=== PATIENT | male | born 1950 | race Caucasian/White ===

== ENCOUNTER 2020-01-11 08:03 | Inpatient (IN) ==
[2020-01-11] MEDS ORDERED: DILAUDID IV ONE ×2 (08:20→09:39)
[2020-01-11] MEDS ORDERED: ZOFRAN IV ONE (08:20)
[2020-01-11] MEDS ORDERED: PROTONIX 80 MG in NS 80 ML IV ONE (08:20)
[2020-01-11] MEDS ORDERED: NS 1,000 ML IV ONE (08:20)
[2020-01-11] MEDS ORDERED: SOLU-CORTEF IV ONE (08:23)
--- NOTE | 2020-01-11 08:48 | PROVIDER DOCUMENTATION ---
HPI-Abdominal Pain/GI Problem - General Chief Complaint: Abdominal Pain Stated Complaint: STOMACH PAIN Time Seen by Provider: 01/11/20 08:12 Source: patient Allergies/Adverse Reactions: Patient Allergies Allergy/AdvReac Type Severity Reaction Status Date / Time No Known Allergies Allergy Verified 01/11/20 10:50 Home Medications: Home Medication List Medication Instructions Recorded Confirmed Last Taken Type Prednisone 1 tab PO BID 01/11/20 01/11/20 Unknown History - History of Present Illness-ABD Nature of Presenting Problems: 69 yo male, c/o epigastric pain and vomiting since 0700 today. Has been having severe mid back pain x 3-4 days, thought he had been "overdoing it" at home. Has never had these symptoms before. Patient states he is steroid dependent d/t skin disease and pulmonary disease (bronchiolitis obliterans). No history of abdominal surgeries or similar symptoms. Sees Dr. Soto for GI, Rudolph for PCP and Elham for pulmonary. 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 Denies cough/SOB. Has significant chills this morning. No fever. Last BM yesterday, Did have some flatus today. Patient drove self to ED. Abdominal Pain Onset Location: reports: epigastric Pain Radiation: reports: back Quality of Pain: reports: aching, sharp, stabbing Severity in ED: reports: severe Onset/Duration: reports: 1-3 hours ago (with abdominal pain), 4 days ago (with back pain) Timing: reports: still present, constant, changing over time, getting worse Activities at Onset: reports: light activity Exposure to sick contacts?: No Modifying Factors: improves with: nothing. worse with: movement Associated Symptoms: reports: back/neck pain (back pain x 3-4 days, gradual onset, mid-back, getting progressively worse), fever/chills (chills this morning, no fever), loss of appetite, malaise, pain with inspiration (in epigastric area this morning), vomiting (numerous times this morning). denies: diaphoresis, diarrhea, dizziness Last BM: 24 hours ago Dark Stools Present?: reports: none noticed Rectal Bleeding: reports: none Rectal Pain: reports: none Emesis Description: reports: clear Bruising or Bleeding Gums?: No Similar Symptoms Previously?: No Recently seen or treated by another doctor?: No Review of Systems - Adult - REVIEW OF SYSTEMS - ADULT Constitutional: reports: see HPI, chills. denies: fever, night sweats Eyes: reports: no symptoms reported Ears, Nose, Mouth & Throat: reports: no symptoms reported Cardiovascular: reports: no symptoms reported Respiratory: reports: no symptoms reported Gastrointestinal: reports: see HPI, abdominal pain, nausea, poor appetite, vomiting. denies: hematemesis, constipation, diarrhea, difficulty swallowing, frequent heartburn, rectal bleeding Genitourinary: reports: no symptoms reported Musculoskeletal: reports: see HPI, back pain. denies: bone pain, frequent leg cramps, joint pain, joint swelling, muscle aches, muscle weakness, neck pain Integumentary: reports: no symptoms reported Neurological: reports: no symptoms reported Psychiatric: reports: no symptoms reported Endocrine: reports: no symptoms reported Hematologic/Lymphatic: reports: no symptoms reported Allergic/Immunologic: reports: no symptoms reported All Other Systems: Reviewed and Negative Past History - Adult - PAST MEDICAL HISTORY-ADULT Review of Records: reports: Old Records Reviewed (no recent admissions), Nursing Assessment Review, Medications Reviewed, Social history reviewed & non- contributory. 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) Gastrointestinal: reports: denies history Obstetrical/Gynecological: reports: denies history Genitourinary: reports: denies history Musculoskeletal: reports: denies history Neurological: reports: denies history Endocrine/Immune: reports: other (skin disorder (can't remember the name)) Other Conditions: reports: denies history - PRIOR SURGERIES/PROCEDURES Surgical/Procedure History: reports: reviewed, not pertinent - IMMUNIZATION STATUS Childhood Immunizations: UTD Flu Vaccine: UTD - FAMILY HISTORY Family History: reviewed, not pertinent - SOCIAL HISTORY Smoking: quit greater than 1 year Substance Use: none/never Alcohol Use Frequency: never Living Situation: family Physical Exam-General - PHYSICAL EXAM-ADULT Initial Vital Signs Reviewed: Yes (VSSAF) - CONSTITUTIONAL General Appearance: alert, moderate distress (dry heaving) - EYES Eyes: PERRL/EOMI, pale conjunctivae. negative: pink conjunctivae - HEAD, EARS, NOSE, MOUTH & THROAT HENMT: normocephalic/atraumatic, TMs normal, pharynx normal. negative: moist mucous membranes (dry) - NECK Neck: full range of motion, supple, normal inspection - RESPIRATORY Respiratory: chest non-tender, lungs clear, normal breath sounds, no pleuratic chest pain, no respiratory distress, no accessory muscle use - CARDIOVASCULAR Cardiovascular: normal peripheral pulses, regular rate, rhythm, no edema, no gallop, no JVD, no murmur - GASTROINTESTINAL (ABDOMEN) Abdominal Exam: soft, no organomegaly, no pulsatile mass, abnormal bowel sounds (decreased), guarding (epigastrum/RUQ), tenderness (primarily epigastrum/RUQ), Jon's sign. negative: rebound, mass, hepatomegaly, McBurney's point tenderness, obturator sign, prominent aortic pulsations, Rovsing's sign - LYMPHATIC Lymphatic: no adenopathy - MUSCULOSKELETAL Back Exam: normal inspection, no vertebral tenderness. negative: decreased range of motion Extremity: normal range of motion, non-tender, normal gait, normal inspection, no pedal edema, no calf tenderness, normal capillary refill Peripheral Pulses: radial (R): 2+, radial (L): 2+ - SKIN Integumentary: normal turgor, pallor, other (clammy) - NEUROLOGIC Neurologic: central processing tech II-XII nml as tested, grossly normal, no motor/sensory deficits - PSYCHIATRIC Psych/Mental Status: normal mood/affect, normal thought content, normal thought process, oriented x 3 Progress - PLAN OF CARE/RESULTS Progress/Plan/Lab Results: Vital Signs - 8 hr 01/11/20 08:09 Temperature 98.2 F Pulse Rate 86 Respiratory Rate 18 Blood Pressure 166/78 O2 Sat by Pulse Oximetry 99 Orders Category Date Time Status Nursing- Obtain EKG once Care 01/11/20 08:22 Active CHEST-PORTABLE [RAD] Stat Exams 01/11/20 08:[address] ABD/PELVIS W/IV CONT ONLY [CT] Stat Exams 01/11/20 08:22 Ordered AMYLASE [CHEM] Stat Lab 01/11/20 08:21 Uncollected BLOOD CULTURE [BLDCUL] Stat Lab 01/11/20 08:22 Uncollected CBC WITH ELECTRONIC DIFF [HEME] Stat Lab 01/11/20 08:21 Uncollected CORTISOL Stat Lab 01/11/20 08:23 Ordered INFLUENZA SCREEN A/B Stat Lab 01/11/20 08:23 Uncollected LIPASE [CHEM] Stat Lab 01/11/20 08:21 Uncollected PRO B-NATRIURETIC PEPTIDE Stat Lab 01/11/20 08:22 Uncollected PROTIME WITH INR [COAG] Stat Lab 01/11/20 08:22 Uncollected TROPONIN T HIGH SENSITIVITY Stat Lab 01/11/20 08:22 Uncollected URINALYSIS W/POSS RFLX CULT [URINALYSIS] Stat Lab 01/11/20 08:22 Uncollected 0.9% Sodium Chloride Inj [Ns] 1,000 ml Med 01/11/20 08:20 Active IV 999 mls/hr Hydrocortisone Sod Succinate [Solu-Cortef] Med 01/11/20 08:23 Discontinued 100 mg IV NOW ONE Hydromorphone [Dilaudid] Med 01/11/20 08:20 Discontinued 0.5 mg IV NOW ONE Ondansetron [Zofran] Med 01/11/20 08:20 Discontinued 8 mg IV NOW ONE Pantoprazole [Protonix] 80 mg Med 01/11/20 08:20 Active 0.9% Sodium Chloride Inj [Ns] 80 ml IV NOW EKG [EKG] Stat Ther 01/11/20 08:22 Ordered Result Diagrams: 01/11/20 08:40 01/11/20 08:40 - REASSESSMENT Reassessment #1 Time Reassessed: 09:39 Status: improving (but still reports pain in his back) Reassessment #2 Time Reassessed: 12:03 Status: improving - EKG 1 Time of EKG reading by physician:: 09:50 EKG Read and Signed by:: Jonathan Nagy EKG Interpretation (*Must complete 3 of following elements*): Abnormal Rate: 73 Rhythm: NSR [place]: left QRS: RBB IA Interval: normal ST Wave: non-specific ST changes Prior EKG Comparison: unchanged from prior (01/03) - XRAY 1 XRAY Study: Chest Impression: Normal, See EMR Report ( CHEST-PORTABLE - 01/11/2020 INDICATION: epigastric pain COMPARISON: 07/25/2019 FINDINGS: The lungs are normally expanded and clear. Heart size and mediastinal contours are normal. No pneumothorax or pleural effusion. IMPRESSION: Negative exam. Electronically signed by Ricardo Esposito 01/11/2020 8:52 AM 01/11/20 0852 Interpreting Physician: Ricardo Esposiot MD Dictated Date/Time: 01/11/20 0852 cc: Jonathan Nagy MD; Wilver Galdamez MD) - CONSULTS/PCP/HOSPITALIST Notification #1 *Consult/PCP/Hospitalist*: JOSE Dixon Time Discussed: 09:56 Reason/Comments: Cl liquid diet, NPO after midnight for endoscopy in am Consult Disposition: Will see in ED #2 Consult: Rudolph Time Discussed: 12:03 Consult Disposition: Admit Departure - Departure Date of Disposition Decision: 01/11/20 Time of Disposition Decision: 12:03 DIAGNOSIS: Acute epigastric pain, Concern about peptic ulcer disease without diagnosis Acute pancreatitis Qualifiers: Pancreatitis type: idiopathic Acute pancreatitis complication: no infection or necrosis Qualified Code(s): K85.00 - Idiopathic acute pancreatitis without necrosis or infection Disposition: ADMITTED INPATIENT 09 Certified Medical Emergency: Emergent Condition: Stable Referrals and Follow-Ups: Wilver Galdamez MD [Primary Care Provider] - - Critical Care Note This patient required my direct & personal management of CC.: No Attestation - Physician/ FLEX Attestation Patient care was provided by Advanced Practice Provider:: No The physician spent face to face time with patient:: Yes Advanced Practice Provider documentation review:: Supervising physician onsite and consulted in the evaluation and care of this patient. The physician did have a face to face encounter with the patient.
[2020-01-11 08:54] LABS: BASO# 0.06 X1000 (0.0-0.2); BASO% 0.6 % (0.0-0.8); EOS# 0.06 X1000 (0.0-0.7); EOS% 0.6 % (0.0-10.0); HEMATOCRIT 40.8 % (42.0-52.0); HEMOGLOBIN 12.9 g/dL (14.0-18.0); IMM GRAN# 0.08 X1000 (0.0-0.04); IMM GRAN% 0.8 % (0.0-0.5); LYMPH# 0.73 X1000 (1.2-3.4); LYMPH% 6.9 % (20.5-51.1); MCH 30.6 PG (27-31); MCHC 31.6 g/dL (33-37); MCV 96.9 FL (81-99); MONO# 1.02 X1000 (0.11-0.59); MONO% 9.6 % (1.7-9.3); MPV 11.1 FL (7.4-10.4); NEUT# 8.65 X1000 (1.4-6.5); NEUT% 81.5 % (42.2-75.2); PLT 319 X1000 (130-400); RBC 4.21 XMIL (4.7-6.1); RDW 15.2 % (11.5-14.5)
--- NOTE | 2020-01-11 08:55 | Diag Imaging Result Doc PS360 ---
CHEST-PORTABLE - 01/11/2020 INDICATION: epigastric pain COMPARISON: 07/25/2019 FINDINGS: The lungs are normally expanded and clear. Heart size and mediastinal contours are normal. No pneumothorax or pleural effusion. IMPRESSION: Negative exam. Electronically signed by Ricardo Esposito 01/11/2020 8:52 AM
[2020-01-11 09:09] LABS: AMYLASE 38 U/L (20-200); LIPASE 19 U/L (13-60)
[2020-01-11 09:42] LABS: INR 1.04; PROTIME 13.7 Seconds (11.0-16.0)
[2020-01-11 10:00] LABS: AGAP 15; ALB/GLOB RATIO 1.3; ALKALINE PHOSPHATASE 86 U/L (32-122); BUN 12 mg/dL (8-22); CALCIUM 9.8 mg/dL (8.8-10.2); CHLORIDE 97 mmol/L (98-107); COSMO 278; ESTIMATED GFR > 60; GLUCOSE 141 mg/dL (70-104); GOT 16 U/L (10-34); GPT 18 U/L (10-44); POTASSIUM 3.6 mmol/L (3.5-5.1); SODIUM 138 mmol/L (136-145); TCO2 26 mmol/L (25-35); TOTAL BILIRUBIN 0.35 mg/dL (0.20-1.00); TOTAL PROTEIN 7.1 g/dL (6.3-8.3)
[2020-01-11 10:12] LABS: URINE SOURCE CLEAN CATCH
[2020-01-11 10:19] LABS: BILIRUBIN URINE NEGATIVE (NEGATIVE); BLOOD URINE NEGATIVE (NEGATIVE); COLOR STRAW; GLUCOSE URINE NEGATIVE (NEGATIVE); KETONE URINE NEGATIVE (NEGATIVE); LEUKOCYTES URINE NEGATIVE (NEGATIVE); NITRITE URINE NEGATIVE (NEGATIVE); PROTEIN URINE NEGATIVE (NEGATIVE); SP GRAVITY URINE 1.014; TURBIDITY URINE CLEAR (CLEAR); UROBILINOGEN URINE NORMAL (NORMAL)
[2020-01-11 10:20] LABS: UR EPITHELIAL CELLS <10 /HPF (<10); URINE BACTERIA NEGATIVE /HPF; URINE RBC <10 /HPF (<10); URINE WBC <10 /HPF (<10)
--- NOTE | 2020-01-11 10:43 | EKG Report ---
Test Performed on : 01/11/2020 09:36:08 AM Test Reason : epigastric pain Blood Pressure : / mmHG Vent. Rate : 073 BPM Atrial Rate : 073 BPM P-R Int : 144 ms QRS Dur : 136 ms QT Int : 390 ms P-R-T Axes : 075 -09 019 degrees QTc Int : 429 ms Normal sinus rhythm. Possible Left atrial enlargement Right bundle branch block Abnormal ECG When compared with ECG of 12-JAN-2018 08:18, T wave inversion now evident in Anterior leads Unconfirmed Result
[2020-01-11] MEDS ORDERED: SODIUM CHLORIDE 0.9% INJ ONE (10:46)
--- NOTE | 2020-01-11 11:45 | Diag Imaging Result Doc PS360 ---
CT ABD/PELVIS W/IV CONT ONLY - 01/11/2020 INDICATION: epigastric pain radiating to back COMPARISON: None FINDINGS: There is some linear atelectasis in the lung bases bilaterally. Heart size is normal with no pericardial effusion. There is some fatty edema in the retroperitoneum mainly around the pancreatic body and tail. This is at the posterior pancreas. The liver, gallbladder, spleen, and both kidneys are normal. No biliary dilation. No drainable fluid collections. There is severe constipation. No bowel obstruction or inflammation. Urinary bladder, prostate, and rectum are normal. There are moderate degenerative changes of the spine. No acute or suspicious bony lesion. There is moderately extensive calcified plaque in the distal abdominal aorta and pelvic arteries. IMPRESSION: 1. Severe constipation. 2. Moderate acute pancreatitis. No complications. This exam was performed using automated exposure control, adjustment of mA or kV according to patient size, and/or use of iterative reconstruction technique Electronically signed by Ricardo Esposito 01/11/2020 11:43 AM
--- NOTE | 2020-01-11 11:45 | GASTROENTEROLOGY CONSULTATION ---
DATE: 01/11/2020 REASON FOR CONSULT: Abdominal pain, nausea, and vomiting. HISTORY OF PRESENT ILLNESS: Mr. Strickland is a 69-year-old, male, who came to the emergency department with complaints of epigastric pain radiating to the mid back. He said it has been going on for at least a week. He felt that his stomach was bloated, feeling of anorexia. The patient complained of having chills, but he has denied any fever. He did have nausea and vomiting today. The patient has denied noticing any blood in his stools or in his emesis. He is complaining of epigastric pain that is radiating to the midback, rating it as 10/10, and describing it as sharp pain. The patient does have a history of urticaria dermatitis, bronchiolitis obliterans, GERD, hemorrhoids and diverticulosis. Patient does take steroids on a daily basis for his dermatitis and bronchiolitis obliterans. The patient recently started taking ibuprofen for the last 2 to 3 weeks, 200 mg twice a day. He sees Dr. Soto for his GI problems. He did have an EGD and a colonoscopy done on 07/07/2018. EGD showed that he had mild esophagitis in the proximal third of the esophagus, candidal. Gastritis was found in the antrum and the body of the stomach. Biopsies were taken. The cardia, fundus, and incisura were normal. Gastric bile was found. Duodenitis was found in the duodenal bulb. Colonoscopy showed that he had 2 small polyps in the descending colon and rectum. The polyps were all removed. Internal grade 2 hemorrhoids were found in the anus and rectum, and mild diverticulosis in the sigmoid colon and descending colon. His stomach biopsy showed that he had superficial gastritis, and it was negative for the H. pylori bacteria. Descending colon polyp revealed serrated adenoma. No high-grade dysplasia or neoplasia noted. Rectal polyp showed superficial fragments of benign colonic mucosa. No polyp identified. The patient's chest x-ray today showed negative exam. His hemoglobin and hematocrit on admission were 12.9 and 40.8. PAST MEDICAL HISTORY: GERD, urticaria dermatitis, bronchiolitis obliterans, hemorrhoids and diverticulosis ALLERGIES: The patient is allergic to methotrexate. PAST SURGICAL HISTORY: Right knee replacement in 2012, left shoulder surgery in 2006, and epidural injections in the right hip x2. FAMILY HISTORY: His mother had colon cancer. 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 He is a past smoker, past alcoholic. Denies any illicit drug use. HOME MEDICATIONS: Prednisone 10 mg 1 tablet twice a day and azathioprine 50 mg BID. REVIEW OF SYSTEMS: As per HPI. Otherwise, a 12-point review of system is negative. PHYSICAL EXAMINATION: Vital Signs: Temperature 98.2 degrees, pulse 86, respirations 18, blood pressure 166/78, oxygen saturation 99% on room air. The patient's weight is 207 pounds. BMI is 30.1 kg/m2. General: He is alert and oriented x3, and in no acute distress, answering questions appropriately. HEENT: Pale conjunctivae. No icterus. PERRL. Neck: Supple. Lungs: Clear to auscultation. Cardiovascular: Regular rate and rhythm. Abdomen: Soft, tender in the epigastric area. Active bowel sounds heard in all 4 quadrants. Extremities: No clubbing, no cyanosis, no edema. Pedal pulses 2+ present bilaterally. Neurologic: He is alert and oriented x3. Nonfocal. Cranial nerves II through XII are grossly intact. LABORATORY DATA: WBCs are 10.60, RBCs 4.21, hemoglobin is 12.9, hematocrit is 40.8, platelet count is 319,000. PT is 13.7, INR is 1.04. Sodium is 138, potassium is 3.6, chloride 97, carbon dioxide 26, anion gap 15, BUN 12, creatinine is 1.0, glucose is 141, calcium is 9.8. Total bilirubin is 0.35, AST is 16, ALT is 18, alkaline phosphatase is 86, albumin is 4.0. Amylase is 38, lipase is 19. Plasma lactate is 1.6. Cortisol levels are 18.7. IMAGING: Chest x-ray today showed negative exam. CT scan has shown severe constipation and moderate acute pancreatitis. No complication. IMPRESSION AND PLAN: 1. Abdominal pain 2. Nausea and vomiting 3. Question pancreatitis 4. Constipation 5. GERD 6. H/o Urticaria dermatitis 7. H/o bronchiolitis obliterans 8. Anemia PLAN: Mr. Strickland is a 69-year-old, male with a history of dermatitis and bronchiolitis obliterans. GI has been consulted for his abdominal pain and nausea and vomiting. The plan was to do an EGD, but we have cancelled it. His CT scan has shown severe constipation and moderate acute pancreatitis. We will start patient on IV fluids NS @150 ml/hr and PPI's BID. He will be NPO. Patient is on antiemetic for his nausea and vomiting. We will continue to monitor the patient and follow the plan of care per PCP. This plan was discussed with Dr. Dixon. Thank you for your consult. Please call us for any further questions and concerns. Dictated by ERICA Mayo for Dawson Dixon MD Physician Attestation I have seen and examined the patient. I have discussed and reviewed the note by Nahed MALDONADO and agree with findings and plan as documented. MTDD
[2020-01-11] MEDS ORDERED: DILAUDID IV PRN ×2 (12:00→15:47)
[2020-01-11] MEDS ORDERED: NS 1,000 ML IV SCH ×4 (13:01→15:48)
[2020-01-11] MEDS ORDERED: MIRALAX PO SCH (15:30)
--- NOTE | 2020-01-11 15:44 | HISTORY AND PHYSICAL ---
PRIMARY CARE PHYSICIAN: Dr. Wilver Galdamez. CHIEF COMPLAINT: Intractable abdominal pain. HISTORY OF PRESENT ILLNESS: A 69-year-old, white male with a complicated past medical history who presents for evaluation of above-mentioned symptoms. Current history of present illness began during the weekend. At that time, patient states he developed a mild epigastric fullness as well as left flank pain. The patient noted the pain to be nonlimiting. He was able to carry on his daily activities. On Thursday, patient states that he moved furniture at his [place] home. On Thursday evening, he developed increasing pain in his left flank. The patient states he was unable to sleep restfully through the night. Throughout the day Thursday, patient states the pain persisted, but again proved nonlimiting. He carried out his daily routine activities. Throughout the night, patient's pain continued to intensify. This morning, he awoke with worsening epigastric pain as well as the persistent left flank pain. The patient soon developed intractable nausea and vomiting. He noted chills but denied fevers. Because of his progressive symptoms, he presented to the emergency department for further evaluation and management. Upon arrival, a full evaluation was pursued. Chest x-ray returned without abnormality. CT scan of the abdomen and pelvis suggested severe constipation and moderate acute pancreatitis. No complications were identified. The liver, gallbladder, spleen, and kidneys were within normal limits. Laboratory data returned somewhat interesting with normal pancreatic enzymes. Because of patient's intractable symptoms as well as abnormal CT scan findings, patient will be admitted to the hospital for full evaluation and management. Of note, the patient denies hematochezia and melena. His last bowel movement was yesterday and described as slightly constipated, but no significant abnormalities. He denies hematemesis associated with his nausea and vomiting. No dysuria, hematuria, or pyuria has been identified. PAST MEDICAL HISTORY: 1. Chronic anemia diagnosed in 2012. 2. Long-standing right knee pain, status post right total knee arthroplasty in 2012. 3. Bilateral shoulder arthralgia, status post surgical interventions in the past. 4. Bronchiolitis obliterans organized pneumonia diagnosed in 2016, likely secondary to methotrexate, requiring a prednisone taper to achieve resolution. 5. Right bundle branch block. 6. Diverticulosis. 7. Situational depression and anxiety. 8. Hyperlipidemia. 9. Lumbar spine pain secondary to torn right piriformis muscle diagnosed in 2017. 10. Monoclonal gammopathy of undetermined significance diagnosed in 2019. 11. 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 12. History of right-sided thyroid fullness with negative thyroid ultrasound in 2015. 13. Nummular eczema requiring immunosuppressants. 14. Osteoarthritis. 15. Palpitations. 16. History of ventricular tachycardia diagnosed in 1992. 17. History of umbilical hernia. 18. Steroid withdrawal myalgias and arthralgias, requiring prolonged taper. CURRENT MEDICATIONS: 1. Advil 200 mg 1 to 2 tablets every 4 hours as needed. 2. Prednisone 13 mg daily. ALLERGIES: The patient is allergic to methotrexate which caused bronchiolitis obliterans organized pneumonia. SOCIAL HISTORY: The patient smoked 1 pack per day for 30 years. He quit in September 2000. He rarely uses alcohol. He denies illicit drug use. 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 He exercises routinely. FAMILY HISTORY: Patient's father passed at age 75 secondary to complications of an acute myocardial infarction. Patient's mother passed at age 91 secondary to a hip fracture. She also had a history of osteoporosis and colon cancer. REVIEW OF SYSTEMS: A 12 point review of systems was performed. Pertinent positives and negatives are noted in the history of present illness. PHYSICAL EXAMINATION: VITAL SIGNS: Temperature 98.6 degrees, heart rate 75, respirations 16, blood pressure is 160/77. GENERAL: Well-nourished, well-developed. Mild abdominal distress. HEENT: Normocephalic, atraumatic. Pupils equal, round, and reactive to light. Extraocular muscles intact. Sclerae anicteric. Munday conjunctivae. Oral and nasopharynx clear without exudate. NECK: Supple. No lymphadenopathy. No thyromegaly. No bruits auscultated. CARDIOVASCULAR: Regular rate and rhythm. No significant murmurs, rubs, or gallops. PULMONARY: Clear to auscultation bilaterally. ABDOMEN: Soft. Significant tenderness in the epigastrium with guarding, but no rebound. Positive bowel sounds. EXTREMITIES: Moves all extremities well. No significant clubbing, cyanosis, or edema. DERMATOLOGIC: Evaluation reveals no evidence of rash. NEUROLOGIC EXAMINATION: Cranial nerves 2-12 grossly intact. Motor and sensory grossly intact. PSYCHOLOGIC: Examination is appropriate. LABORATORY DATA: White blood cell count 10.60, hemoglobin 12.9, hematocrit 40.8, platelet count is 319,000. PT 13.7, INR is 1.04. Sodium 138, potassium 3.8, chloride 97, bicarb 26, BUN 12, creatinine 1.0, glucose 141, calcium 9.8. Total bilirubin 0.35, total protein 7.1, albumin 4.0, alkaline phosphatase 86, AST 16, ALT 18, amylase 38, lipase 19, plasma lactate 1.6, cortisol 18.7. Troponin 12. CT scan of the abdomen and pelvis revealed severe constipation, moderate acute pancreatitis. ASSESSMENT AND PLAN: A 69-year-old, white male with a complicated past medical history who presents for evaluation of profound epigastric pain. Interestingly, the patient's CT scan findings and laboratory data do not correlate. CT scan suggested a moderate acute pancreatitis. Laboratory findings suggest normal pancreatic enzymes. While this may indeed be a pancreatitis, this also raises concern for peptic ulcer disease. Additionally, with severe constipation as noted per CT scan, epigastric pain could indeed be secondary to obstipation/constipation. Patient will be admitted to the hospital for full evaluation and management. 1. Admit to general medicine. 2. Intractable abdominal pain. As above, differential diagnosis is quite broad. Highest on the differential is that of pancreatitis and peptic ulcer disease Risk factors for pancreatitis are low. However, the patient does have a gallbladder. He does not use alcohol routinely. Risk factors for peptic ulcer disease are quite high including prednisone and ibuprofen use. Gastroenterology has been consulted. Esophagogastroduodenoscopy is planned for tomorrow. We will place the patient on intravenous Protonix and intravenous fluids. We will allow only ice chips for eating right now. We will consider abdominal ultrasound in the morning to rule out underlying gallbladder disease. 3. Intractable nausea and vomiting. This is likely secondary to above. We will continue antiemetics as needed. We will start intravenous fluids as noted. 4. Steroid withdrawal myalgias/arthralgias-at this point, we are unable to discontinue steroids despite a high risk for gastrointestinal events. We will transition patient from prednisone to Solu-Medrol for now. Depending on the esophagogastroduodenoscopy findings, we will consider whether alternatives are available. 5. Steroid responsive dermatitis-patient's skin at present time reveals no concerning findings. We will continue steroids as above. 6. Constipation-we will evaluate patient with an esophagogastroduodenoscopy tomorrow. Thereafter, we will plan to initiate a good bowel regimen. 7. Fluid, electrolytes, nutrition. We will monitor electrolytes. Normal saline at 75 mL an hour. Nothing per oral except for ice chips and medications. 8. Prophylaxis. The patient will be placed on sequential compression devices. cc: Wilver Galdamez MD
[2020-01-11] MEDS: DILAUDID IV PRN ×3 (18:30→22:56)
[2020-01-11] MEDS: PROTONIX IV SCH (20:47)
[2020-01-11] MEDS: ZOFRAN IV PRN (20:48)
[2020-01-11] MEDS: NS 1,000 ML IV SCH (22:56)
[2020-01-11] MEDS: MIRALAX PO SCH (23:08)
[2020-01-12] MEDS: DILAUDID IV PRN ×11 (01:50→23:21)
[2020-01-12] MEDS: ZOFRAN IV PRN ×4 (01:50→23:22)
[2020-01-12] MEDS: NS 1,000 ML IV SCH ×2 (06:10→14:17)
[2020-01-12 06:25] LABS: BASO# 0.03 X1000 (0.0-0.2); BASO% 0.2 % (0.0-0.8); EOS# 0.03 X1000 (0.0-0.7); EOS% 0.2 % (0.0-10.0); HEMATOCRIT 36.4 % (42.0-52.0); HEMOGLOBIN 11.5 g/dL (14.0-18.0); IMM GRAN# 0.08 X1000 (0.0-0.04); IMM GRAN% 0.7 % (0.0-0.5); LYMPH# 1.38 X1000 (1.2-3.4); LYMPH% 11.3 % (20.5-51.1); MCH 30.9 PG (27-31); MCHC 31.6 g/dL (33-37); MCV 97.8 FL (81-99); MONO# 1.18 X1000 (0.11-0.59); MONO% 9.7 % (1.7-9.3); MPV 10.4 FL (7.4-10.4); NEUT# 9.51 X1000 (1.4-6.5); NEUT% 77.9 % (42.2-75.2); PLT 247 X1000 (130-400); RBC 3.72 XMIL (4.7-6.1); RDW 15.3 % (11.5-14.5); WBC 12.21 X1000 (4.8-10.8)
[2020-01-12] MEDS ORDERED: SODIUM CHLORIDE 0.9% 10 ML ONE ×2 (06:28→12:06)
[2020-01-12 06:37] LABS: AGAP 12; ALB/GLOB RATIO 1.3; ALBUMIN 3.5 g/dL (3.5-5.0); ALKALINE PHOSPHATASE 76 U/L (32-122); AMYLASE 27 U/L (20-200); BUN 10 mg/dL (8-22); CALCIUM 8.6 mg/dL (8.8-10.2); CHLORIDE 97 mmol/L (98-107); COSMO 272; CREATININE 0.7 mg/dL (0.7-1.2); ESTIMATED GFR > 60; GLUCOSE 124 mg/dL (70-104); GOT 12 U/L (10-34); GPT 16 U/L (10-44); LIPASE 7 U/L (13-60); POTASSIUM 3.8 mmol/L (3.5-5.1); SODIUM 136 mmol/L (136-145); TCO2 27 mmol/L (25-35); TOTAL BILIRUBIN 0.42 mg/dL (0.20-1.00); TOTAL PROTEIN 6.2 g/dL (6.3-8.3)
[2020-01-12 06:52] LABS: LYMPHS 4 % (21-51); MONO 4 % (1-9); SEGS 78 % (42-75)
[2020-01-12] MEDS: SOLU-MEDROL IV SCH (07:44)
[2020-01-12] MEDS: MIRALAX PO SCH (08:58)
[2020-01-12] MEDS: PROTONIX IV SCH (08:58)
[2020-01-12] MEDS ORDERED: ROBINUL ONE ×2 (10:08→10:19)
[2020-01-12] MEDS ORDERED: XYLOCAINE-MPF 2% ONE (10:08)
[2020-01-12] MEDS ORDERED: ZOFRAN ONE (10:09)
[2020-01-12] MEDS ORDERED: DIPRIVAN 1% ONE ×2 (10:09→10:10)
--- NOTE | 2020-01-12 10:12 | GASTROENTEROLOGY PROGRESS NOTE ---
DATE: 01/12/2020 SUBJECTIVE: Mr. Strickland is a 69-year-old male resting in bed. The patient is complaining of abdominal pain in the epigastric area radiating to the back. He has denied any nausea and vomiting. OBJECTIVE: Vital Signs: Temperature 97.5 degrees, pulse 80, respirations 16, blood pressure 162/70, and oxygen saturation 97% on 2 L nasal cannula. The patient's weight is 207 pounds. BMI is 30.6 kg/m2. General: He is alert and oriented x3, and in no acute distress. HEENT: Mild Pale conjunctivae. No icterus. PERRL. Neck: Supple. Lungs: Clear to auscultation. Cardiovascular: Regular rate and rhythm. Abdomen: Mildly distended and tender in the epigastrium. Soft. Tender in the epigastric area. Active bowel sounds heard in all 4 quadrants. Extremities: No clubbing, no cyanosis, no edema. Pedal pulses 2+ present bilaterally. Neurologic: He is alert and oriented x3. LABORATORY: WBCs 12.21, RBCs 3.72, hemoglobin 11.5, hematocrit 36.4, and platelet count is 247,000. Sodium 136, potassium 3.8, chloride 97, carbon dioxide 27, anion gap 12, BUN 10, creatinine 0.7, glucose 124, and calcium 8.6. Total bilirubin is 0.42, AST 12, ALT 16, alkaline phosphatase is 76, albumin is 3.5, amylase 27, and lipase 7. IMPRESSION AND PLAN: Epigastric pain N/V Constipation GERD Gastritis H/o urticaria dermatitis H/o of bronchiolitis obliterans Anemia H/o chronic steroid use PLAN: Mr. Strickland is a 69-year-old male with a history of urticaria dermatitis and bronchiolitis obliterans. GI is following him for his abdominal pain, nausea and vomiting. We plan to do an EGD today. We have discussed the risks, benefits, and alternatives of the procedure to the patient. The patient is currently receiving IV fluids of normal saline at 150 mL. He is on PPIs twice a day. The patient is also on a bowel regimen MiraLAX twice a day. He is receiving Solu- Medrol 20 mg IV daily. For his pain, he is on Dilaudid. For his nausea and vomiting, he is on Zofran 4 mg IV q.6 hours. EGD findings were mild gastritis in the antrum, duodenal mucosa showed no abnormalities, esophagus was normal. The plan is to do a colonoscopy tomorrow for further evaluation. Patient will be on clear liquids for now, NPO after midnight and will do the golytely prep. Surgery has been consulted for possible bowel ischemia. We will continue to monitor the patient and follow the plan of care per PCP. Further plan of care will be based on the colonoscopy findings. This plan was discussed with Dr. Soto. Please call us for any further questions or concerns. Dictated by ERICA Mayo for Jb Soto MD cc: MD Wilver Henriquez MD I have seen and examined the patient myself and I agree with the above plan of care. Please call us with any questions or concerns. ANIA
[2020-01-12] MEDS ORDERED: FENTANYL ONE (10:33)
--- NOTE | 2020-01-12 10:52 | ENDOSCOPY OPERATIVE NOTE ---
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 PROCEDURE PERFORMED: EGD, diagnostic MEDICATIONS: Per Anesthesia ESTIMATED BLOOD LOSS: None CONSENT: The patient understands the risks and benefits of the procedure and understands that these r isks include, but are not limited to: sedation, allergic reaction, infection, perforation and/or bleeding. Alternative means of evaluation and treatment include, among others: physical exam, x-rays, and/or surgical intervention. The patient elects to proceed with this endoscopic procedure. DESCRIPTION OF PROCEDURE: During pre-op preparation period all mechanical and medical equipment was c hecked for proper function. Hand hygiene and appropriate measures for infection prevention was taken. After the risks, benefits and alternatives of the procedure were thoroughly explained, Informed consent was verified, confirmed and timeout was successfully executed by the treatment team. The patient was anesthetized with topical anesthesia and the AY40-[id number] ([id number]) endoscope was introduced through the mouth and advanced to the second portion of the duoden um. Retroflexion was performed in the stomach and revealed no abnormalities. The gastroscope was then slowly withdraw n and removed. The patient's toleration of the procedure was good. ESOPHAGUS: Z line was noted at 45 cms. The esophagus was otherwise normal. STOMACH: Mild gastritis noted in the antrum. PERTINENT NEGATIVES: There was no evidence of blood, esophagitis, erosion and ulcer. DUODENUM: The duodenal mucosa showed no abnormalities in the duodenal bulb, 1st part duodenum, and 2n d part duodenum. ADVERSE EVENTS: There were no complications. IMPRESSIONS: 1. Z line was noted at 45 cms 2. The esophagus was otherwise normal 3. Mild gastritis noted in the antrum 4. The duodenal mucosa showed no abnormalities in the duodenal bulb, 1st part duodenum, and 2nd part duodenum RECOMMENDATIONS: Schedule for colonoscopy in AM for further work up Surgery consult to evaluate for bowel ischemia Start Clear liquid diet and golytely today and NPO past MN. Continue PPI QD REPEAT EXAM: Jb Soto MD eSigned: Jb Soto MD 01/12/2020 10:51 AM CC: CPT CODES: ICD CODES: The ICD and CPT codes recommended by this software are interpretations from the data that the [facility] staff has captured with the software. The verification of the translation of this report to the ICD and CPT co leesa and modifiers is the sole responsibility of the health care institution and practicing physician where this report was generated. [employer] will not be held responsible for the validity of the ICD and CPT codes i ncluded on this report. AMA assumes no liability for data contained or not contained herein. CPT is a registered tra demark of the [employer]. PATIENT NAME: Bruno Strickland MR#: [id number]
[2020-01-12] MEDS: DILAUDID ONE ×2 (11:08→11:18)
--- NOTE | 2020-01-12 13:58 | PROGRESS NOTE ---
DATE: 01/12/2020 SUBJECTIVE: The patient was admitted yesterday with intractable abdominal pain and left flank pain. CT scan suggested underlying pancreatitis. Interestingly, pancreatic enzymes returned within normal limits. The patient was started on symptomatic management. He was placed NPO. Overnight, the patient continued to have considerable pain. Largely, this has localized to his epigastric region. He has had no further nausea and vomiting. He denies fevers or chills. He was taken for EGD this morning. Gastritis was identified, but no evidence of ulcerative disease was noted. In addition to pancreatitis on CT scan, the patient was noted to have constipation. This has been addressed with MiraLAX and Senna-S. Thus far, he has not achieved adequate evacuation. At the present time, the patient does continue to have considerable pain. This is controlled with routine Dilaudid therapy. Ultrasound is scheduled for today. Colonoscopy is scheduled for tomorrow. OBJECTIVE: T-max 98.3 degrees, heart rate 77 to 81, respirations 14 to 20, blood pressure 148- 162/68-70. General: No acute distress. Abdominal pain present. Cardiovascular: Regular rate and rhythm. No significant murmurs, rubs, or gallops. Pulmonary: Clear to auscultation bilaterally. Abdomen: Soft. Significant tenderness in the epigastric region. Positive guarding but no rebound. Positive bowel sounds. Extremities: Moves all extremities well. No significant clubbing, cyanosis, or edema. Dermatologic: Evaluation reveals no evidence of rash. Laboratory Data: White blood cell count 12.21, hemoglobin 11.5, hematocrit 36.4, platelet count is 247,000. Sodium 136, potassium 3.8, chloride 97, bicarb 27, BUN 10, creatinine 0.7, glucose 124, calcium 8.6. Total bilirubin 0.42, total protein 6.2, albumin 3.5, alkaline phosphatase 76, AST 12, ALT 16, amylase 27, lipase 7. ASSESSMENT AND PLAN: 1. Intractable abdominal pain-unfortunately, a definitive diagnosis has not been identified. Pancreatitis is of concern per CT scan, but with normal pancreatic enzymes. Peptic ulcer disease was also of concern; however, esophagogastroduodenoscopy suggested only gastritis. A gallbladder ultrasound has been scheduled. Colonoscopy is also scheduled for tomorrow. Additionally, Dr. Topete has been consulted to evaluate for possible celiac artery insufficiency. For now, we will continue symptomatic management with intravenous pain medications and intravenous Protonix. I appreciate consultants' assistance. 2. Intractable nausea and vomiting-this likely is secondary to above. With treatment of his pain, this has improved considerably. We will continue as-needed intervention. 3. Steroid-withdrawal myalgias/arthralgias-I have transitioned the patient from prednisone to Solu-Medrol. We will follow this. 4. Steroid-responsive dermatitis-unfortunately, we are not able to discontinue his steroids at this time despite some gastritis. At this point, the benefits of steroids outweigh the risks. 5. Constipation-we will remain aware that this may be causing his significant abdominal pain. The patient was started on MiraLAX and Senna-S yesterday. He will be prepped for a colonoscopy for tomorrow. 6. Leukocytosis-question is raised whether this is infectious or demargination associated with his nausea, vomiting, and pain. He is currently afebrile. At this point, we will hold off on antibiotic intervention; however, we will have a low threshold should he demonstrate any evidence of infection. 7. Disposition-at this point, the patient continues to require longterm care in a hospital setting. We will plan discharge home once appropriate. cc: Wilver Galdamez MD
[2020-01-12] MEDS ORDERED: GOLYTELY PO ONE (14:00)
[2020-01-12] MEDS: PERICOLACE PO SCH (14:48)
--- NOTE | 2020-01-12 16:17 | GENERAL SURGERY PROGRESS NOTE ---
DATE: 01/12/2020 Jung is undergoing an ultrasound at this time. I have briefly spoken with him. His symptoms are not typical of chronic mesenteric ischemia. I did review his CAT scan and he has satisfactory patency to all 3 of his mesenteric vessels. I will come back and reexamine him later. cc: MD Wilver Mclain MD
--- NOTE | 2020-01-12 17:34 | Diag Imaging Result Doc PS360 ---
US GB < RUQ (LIMITED) - 01/12/2020 INDICATION: intractable abdominal pain TECHNIQUE: COMPARISON: None FINDINGS: The liver is moderately fatty. No liver masses. No biliary dilation. The pancreas is largely obscured. The gallbladder is normal. Common bile duct measures 3 mm. Aorta, IVC, and main portal vein are patent. No significant fluid. IMPRESSION: Fatty liver. Otherwise no acute disease. Electronically signed by Ricardo Esposito 01/12/2020 5:32 PM
[2020-01-12] MEDS ORDERED: FLEET ENEMA PR ONE (18:55)
[2020-01-13] MEDS: MIRALAX PO SCH ×2 (00:17→08:31)
[2020-01-13] MEDS: PROTONIX IV SCH ×3 (00:18→20:06)
[2020-01-13] MEDS: PERICOLACE PO SCH ×2 (00:19→08:31)
[2020-01-13 01:32] LABS: HEMATOCRIT 37.2 % (42.0-52.0); HEMOGLOBIN 11.6 g/dL (14.0-18.0); MCH 30.4 PG (27-31); MCHC 31.2 g/dL (33-37); MCV 97.4 FL (81-99); MPV 10.3 FL (7.4-10.4); RBC 3.82 XMIL (4.7-6.1); RDW 15.1 % (11.5-14.5); WBC 13.66 X1000 (4.8-10.8)
[2020-01-13] MEDS: DILAUDID IV PRN ×9 (02:11→22:20)
[2020-01-13] MEDS ORDERED: CARDIZEM IV ONE ×2 (02:26→04:47)
--- NOTE | 2020-01-13 02:29 | PROGRESS NOTE ---
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 He has undergone a fairly extensive workup to this point in time. His initial CT scan of the abdomen and pelvis demonstrated severe constipation and moderate pancreatitis. A follow-up ultrasound of the abdomen demonstrated no gallstones or common bile duct dilatation. He underwent an EGD, which demonstrated mild gastritis. Dr. Topete reviewed abdominal films and felt that there was no evidence of mesenteric ischemia. He was scheduled for a colonoscopy in the morning. He had taken nearly 3/4 of a bottle of GoLYTELY, but still had not had a bowel movement. He has had progressive abdominal bloating and distention and diffuse abdominal pain throughout the night. OBJECTIVE: Vital signs: Temperature 98 degrees, pulse respirations 20, BP 172/80. Cardiovascular: Regular rate and rhythm. Lungs: Clear. Abdomen: Distended with hypoactive bowel sounds, diffusely tender. There is marked tenderness in the epigastrium. ASSESSMENT AND PLAN: Abdominal pain. He is having significant abdominal bloating and gas. He has not had a bowel movement in spite of 2 enemas and GoLYTELY. I am concerned about the possibility of an ileus. We will check a flat and upright abdominal film this morning and further recommendations will be made based upon those results. He does appear to have moderate pancreatitis on CT scan, but interestingly his amylase and lipase are within normal limits. He does not take any medicines which potentially would cause pancreatitis. Certainly, you can see acute pancreatitis in the face of elevated triglycerides without a bump in the amylase or lipase. I will increase the Dilaudid for pain. cc: MD Wilver Hampton MD
[2020-01-13] MEDS ORDERED: CARDIZEM 100 MG/NS 100 MG/100 ML IVPB IV SCH (05:00)
--- NOTE | 2020-01-13 05:26 | PROGRESS NOTE ---
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 He has had atrial fibrillation in the remote past. Heart rate was in the 140s and 150s. We initially gave him diltiazem 10 mg IV with hopes of slowing his heart rate down. His heart rate dropped, but jumped back into the 150s. He denies any chest pain or other anginal equivalents. OBJECTIVE: He is afebrile, pulse 154 and irregular, respirations 20, and BP 123/72. CV: Irregularly irregular. Lungs: Clear. Abdomen: Soft and nontender with active bowel sounds. ASSESSMENT AND PLAN: New onset atrial fibrillation with rapid ventricular response. I will transfer the patient to the PVC unit, and begin a Cardizem drip per protocol. I will begin amiodarone 400 mg b.i.d. in the hopes of chemically cardioverting him. cc: MD Wilver Hampton MD
[2020-01-13] MEDS: NS 1,000 ML IV SCH ×2 (06:03→07:17)
[2020-01-13] MEDS: SOLU-MEDROL IV SCH (06:04)
--- NOTE | 2020-01-13 06:17 | Diag Imaging Result Doc PS360 ---
EXAM: CHEST/ABD TUBE PLACEMENT HISTORY: NG TUBE PLACEMENT CONFIRMATION TECHNIQUE: Chest abdomen single view COMPARISON: 01/13/2020 at 1:16 AM FINDINGS: A nasogastric tube overlies the esophagus and stomach and is in good position. Electronically signed by Jose Barth 01/13/2020 6:15 AM
--- NOTE | 2020-01-13 06:19 | Diag Imaging Result Doc PS360 ---
EXAM: ABDOMEN FLAT/UPRIGHT HISTORY: abdominal distention TECHNIQUE: Chest abdomen two views COMPARISON: None. FINDINGS: There is prominent stool in the mid colon. No organomegaly. No abnormal abdominal or pelvic calcifications. IMPRESSION: Prominent stool Electronically signed by Jose Barth 01/13/2020 6:17 AM
[2020-01-13 06:58] LABS: BASO# 0.04 X1000 (0.0-0.2); BASO% 0.3 % (0.0-0.8); HEMATOCRIT 36.7 % (42.0-52.0); HEMOGLOBIN 11.5 g/dL (14.0-18.0); LYMPH# 1.05 X1000 (1.2-3.4); LYMPH% 8.2 % (20.5-51.1); MCH 30.5 PG (27-31); MCHC 31.3 g/dL (33-37); MCV 97.3 FL (81-99); MONO# 0.97 X1000 (0.11-0.59); MONO% 7.6 % (1.7-9.3); MPV 10.5 FL (7.4-10.4); PLT 225 X1000 (130-400); RBC 3.77 XMIL (4.7-6.1); RDW 15.2 % (11.5-14.5); WBC 12.83 X1000 (4.8-10.8)
--- NOTE | 2020-01-13 06:59 | EKG Report ---
Test Performed on : 01/13/2020 06:03:41 AM Test Reason : rhythm change Blood Pressure : / mmHG Vent. Rate : 155 BPM Atrial Rate : 156 BPM P-R Int : 000 ms QRS Dur : 122 ms QT Int : 274 ms P-R-T Axes : 000 -03 -07 degrees QTc Int : 440 ms Critical Test Result: High HR Atrial fibrillation. with rapid ventricular response. Right bundle branch block Abnormal ECG When compared with ECG of 11-JAN-2020 09:36, (Unconfirmed) Atrial fibrillation. has replaced Sinus rhythm. Vent. rate has increased BY 82 BPM T wave inversion less evident in Anterior leads Confirmed by Wilver Galdamez MD ([id number]) on 01/14/2020 5:29:12 PM
[2020-01-13] MEDS ORDERED: SODIUM CHLORIDE 0.9% 10 ML ONE ×2 (07:06→15:21)
[2020-01-13 07:39] LABS: AGAP 14; ALB/GLOB RATIO 0.9; ALBUMIN 3.1 g/dL (3.5-5.0); ALKALINE PHOSPHATASE 76 U/L (32-122); BUN 15 mg/dL (8-22); CALCIUM 8.2 mg/dL (8.8-10.2); CHLORIDE 96 mmol/L (98-107); COSMO 274; CREATININE 0.8 mg/dL (0.7-1.2); ESTIMATED GFR > 60; GLUCOSE 113 mg/dL (70-104); GOT 13 U/L (10-34); GPT 15 U/L (10-44); POTASSIUM 3.5 mmol/L (3.5-5.1); SODIUM 136 mmol/L (136-145); TCO2 26 mmol/L (25-35); TOTAL PROTEIN 6.6 g/dL (6.3-8.3)
[2020-01-13 08:02] LABS: SED RATE 53 mm/hr (0-15)
--- NOTE | 2020-01-13 08:59 | Diag Imaging Result Doc PS360 ---
EXAM: KUB ABDOMEN HISTORY: ileus TECHNIQUE: Single view COMPARISON: Films taken earlier FINDINGS: Nasogastric tube overlies the stomach. There are air distended loops of colon and there is stool and in the proximal colon. No organomegaly. Mild scoliosis with degenerative spine changes. No abnormal abdominal calcifications. IMPRESSION: Stable exam Electronically signed by Jose Barth 01/13/2020 8:57 AM
--- NOTE | 2020-01-13 09:28 | GENERAL SURGERY CONSULTATION ---
DATE: 01/13/2020 CHIEF COMPLAINT: Abdominal pain. REASON FOR CONSULTATION: I have been asked to address the possibility of mesenteric ischemia. HISTORY OF PRESENT ILLNESS: This is a 69-year-old retired [employer], whose recent symptoms are well documented by Dr. Wilver Galdamez. The pain seemed to originate in his abdomen and go through to his back. The initial CAT scan suggested possible acute pancreatitis. However, this was not supported by enzyme change. He denies any chronic weight loss. He has a history of atrial fibrillation in the remote past, but none recently until last night when he went into atrial fibrillation. He does admit to chronic constipation. PAST MEDICAL HISTORY: Again, his past medical history is detailed extensively by Dr. Galdamez. MEDICATIONS: His medications include Advil and prednisone. ALLERGIES: Methotrexate. SOCIAL HISTORY: He does not smoke. Rarely drinks alcohol. He is a and spends much of his time caring for his grandchildren. He is active. FAMILY HISTORY: Pertinent for a myocardial infarction and colon cancer. REVIEW OF SYSTEMS: As noted in his history of present illness. He denies any chronic weight loss, postprandial pain until just the past couple of days with the acute onset of these symptoms. PHYSICAL EXAMINATION: Vital Signs: He is afebrile. Heart rate is 125, blood pressure is 151/82. Neck: There is no cervical adenopathy. Lungs: He has bilateral breath sounds. Heart: Irregular rate and rhythm. Abdomen: Minimally distended, only mildly tender, improved compared to yesterday. He has a small umbilical hernia. Extremities: He does have peripheral pulses. Neurologic: He is awake, alert, oriented. LABORATORY DATA: White count is 13,600, hemoglobin 11.6, hematocrit 37.2. BUN 15, creatinine 0.8. C-reactive protein is greater than 10. Amylase is 19, lipase 4. Lactate on admission was 1.6. Cortisol level was 18.7. ASSESSMENT: This gentleman does not have acute or chronic mesenteric ischemia. Review of his computed tomography scan does not reveal significant obstruction of flow of any of his mesenteric vessels, and all 3 vessels are patent. No intraluminal clot is seen in the arterial system or in the venous system that is identifiable. His symptoms also certainly did not coincide with chronic mesenteric ischemia symptoms. Secondly, he does have symptoms consistent with pancreatitis, even though his enzymes do not reflect that. I do not see gallbladder disease or alcohol as a potential cause for his pancreatitis, even though there are other more unusual causes such as viral-induced or drug-induced. Corticosteroids are known as a potential cause for pancreatitis and he has required them. RECOMMENDATION: There is no recommendation for operative intervention at this time. Certainly evacuation of his colon will be beneficial, and certainly his constipation could be contributing to this as well. I will follow along with serial abdominal exams. Thanks for the opportunity to see him. cc: MD Wilver Mlcain MD
--- NOTE | 2020-01-13 10:05 | EKG Report ---
Test Performed on : 01/13/2020 09:36:23 AM Test Reason : rhythm change Blood Pressure : / mmHG Vent. Rate : 150 BPM Atrial Rate : 150 BPM P-R Int : 104 ms QRS Dur : 134 ms QT Int : 320 ms P-R-T Axes : 000 -07 002 degrees QTc Int : 505 ms Critical Test Result: High HR Suspect Atrial flutter with 2 to 1 block Right bundle branch block Abnormal ECG When compared with ECG of 13-JAN-2020 06:03, (Unconfirmed) Atrial flutter. has replaced Atrial fibrillation. Confirmed by Wilver Galdamez MD ([id number]) on 01/14/2020 5:34:35 PM
[2020-01-13] MEDS: CLINIMIX E 4.25%-5% SOLUTION 1,000 ML IV SCH ×2 (10:37→23:14)
--- NOTE | 2020-01-13 11:03 | GASTROENTEROLOGY PROGRESS NOTE ---
DATE: 01/13/2020 SUBJECTIVE: Mr. Strickland is a 69-year-old male, resting in bed. The patient is still complaining of abdominal pain in the epigastric area. He has an NG tube in place. The patient has still not had a bowel movement. He was supposed to have a colonoscopy today; it has been canceled due to elevated HR. OBJECTIVE: Vital Signs: Temperature 98.3 degrees, pulse 125, respirations 18, blood pressure 151/82, oxygen saturation 96% on nasal cannula. The patient's weight is 207 pounds, BMI is 30.6 kg/m2. General: He is alert, oriented x3, and in no acute distress. HEENT: Pale conjunctivae. No icterus. PERRL. Neck: Supple. Lungs: Clear to auscultation. Cardiovascular: The patient is tachycardic. Abdomen: Mildly firm, distended, tender in the epigastric area. Active bowel sounds heard in all 4 quadrants. Extremities: No clubbing, no cyanosis, no edema. Pedal pulses 2+ present bilaterally. Neurologic: Alert, oriented x3. LABORATORY DATA: WBCs are 12.83, RBCs 3.77, hemoglobin is 11.5, hematocrit is 36.5, platelet count is 225,000. Sodium 136, potassium 3.5, chloride 96, carbon dioxide 26, anion gap 14, BUN 15, creatinine is 0.8, glucose is 113, calcium is 8.2. Magnesium is 1.6. Total bilirubin is 0.40, AST 13, ALT 15, alkaline phos 76, albumin is 3.1. Triglycerides are 89, lipase is 4. Plasma lactate is 2.23. IMAGING: Abdominal ultrasound yesterday showed fatty liver. Abdomen x-ray showed prominent stool. Abdomen x-ray today showed stable exam. Abdomen and pelvis CT done on 01/11/2020, there is an addendum - no findings that are consistent with pancreatitis. IMPRESSION AND PLAN: - Abdominal pain - Nausea and vomiting - Constipation - Colonic ileus - Atrial fibrillation - Normocytic anemia - Bronchiolitis obliterans PLAN: Mr. Striclkand is a 69-year-old male with a history of dermatitis and bronchiolitis obliterans. GI is following him for his abdominal pain. The plan was to do a colonoscopy today but we had to cancel due to an inadequate prep and his HR being elevated. Patient is currently in the PVC unit, he has received Cardizem drip. The patient is still complaining of abdominal pain in the epigastric area. He is currently having an NG tube in place. Patient mentioned feeling a little better after the NG tube was placed. He is on PPIs 40 mg twice a day. For his nausea and vomiting he is on antiemetic Zofran. Patient has received one time dose of mineral enema per PCP. His pain is managed by Dilaudid 1 mg every 2 hours. We have started the patient on IV Clinimix for his nutrition at 75 mL/hour. We will continue to monitor the patient and follow the plan of care per PCP. This plan was discussed with Dr. Dixon. Please call us for any further questions or concerns. Dictated by ERICA Mayo for Dawson Dixon MD cc: Wilver Galdamez MD Physician Attestation I have seen and examined the patient. I have discussed and reviewed the note by Nahed MALDONADO and agree with findings and plan as documented. Suspect that his abdominal pain is related to constipation. KUB shows colonic ileus making motility disorder most likely. Unable to do colonoscopy due to little BMs and Afib with RVR. Recommend alternating mineral oil and soapsud enemas. Continue NPO status, supportive care, minimize constipating meds, and correct lytes. MTDD
[2020-01-13] MEDS ORDERED: LOPRESSOR IV PRN (11:36)
--- NOTE | 2020-01-13 12:24 | CARDIOLOGY CONSULTATION ---
DATE: 01/13/2020 IMPRESSION: 1. Episodes of atrial tachycardia possibly atypical atrial flutter in setting of acute noncardiac illness. Patient's atrial tachyarrhythmias seem to be lessening after recent initiation of NG suction and improvement in patient's symptoms. 2. Acute abdominal process with abdominal pain and bowel obstruction versus ileus. Underlying etiology not entirely clear at this point. The patient seems to be improving from a symptom standpoint with NG suction and intravenous hydration and conservative measures at this point. 3. Hyperlipidemia. 4. History of bronchiolitis obliterans-organizing pneumonia in the past. This is reportedly secondary to methotrexate. RECOMMENDATIONS: 1. Discontinue IV diltiazem for now and use IV metoprolol on an as needed basis. 2. If persistent atrial tachyarrhythmias become problematic, may consider IV amiodarone pending improvement in his acute noncardiac process. 3. Echocardiography. 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 He has been on bowel rest and has had persistent abdominal pain that has been fairly significant. He started to manifest frequent premature atrial complexes and consecutive premature atrial complexes. He also started to show episodes of supraventricular tachycardia either atrial tachycardia versus atypical atrial flutter. He has been asymptomatic from a cardiovascular standpoint perhaps related to the intense distraction from his abdominal symptoms. He was started on NG suction early this morning and relates started to feel better. It appears that his tendency for atrial tachycardia has lessened. He has been on IV diltiazem overnight. PAST MEDICAL HISTORY: 1. Hyperlipidemia. 2. 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 3. History of benign ventricular arrhythmias in the past. 4. Eczema. PAST SURGICAL HISTORY: Includes right total knee replacement, bilateral shoulder arthroscopic surgical procedures, and umbilical hernia repair. ALLERGIES: He is allergic or intolerant to methotrexate. MEDICATIONS: As listed. SOCIAL HISTORY: He is . 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 He has history of previous smoking at a rate of 1 pack cigarettes per day for about 30 years but quit in 1999. He does not use alcohol. FAMILY HISTORY: Negative for premature coronary disease. REVIEW OF SYSTEMS: Pulmonary: Noncontributory beyond history of present illness. Gastrointestinal: Noncontributory beyond history of present illness. Constitutional: Noncontributory beyond history of present illness. The remainder review of systems noncontributory beyond history present illness with 14 total systems reviewed. PHYSICAL EXAMINATION: General: This is a overweight older white male in no distress. Vital signs: Blood pressure 151/82, heart rate 83 with ECG monitor showing sinus rhythm with frequent premature atrial complexes as well as consecutive atrial ectopy. Oxygen saturation 97% on nasal cannula oxygen. HEENT: Extraocular movements intact. Mucous membranes moist. Neck: Supple without jugular venous distention. No carotid bruits. Chest: Clear to auscultation. Cardiac Exam: Reveals a regular rate and rhythm with frequent extrasystole. No murmur or gallop could be appreciated. Abdomen: Distended. Bowel sounds audible. There is no rebound tenderness. Extremities: Without edema. Neurologic: Alert and fully oriented. Speech is fluent. Moves all 4 extremities equally well. Skin: Warm and dry. Psychiatric: Reveals mood to be appropriate. PERTINENT DATA: Twelve lead EKG from early this morning demonstrates regular supraventricular tachycardia, probably atrial tachycardia versus atypical atrial flutter. Right bundle branch block demonstrated. An ECG on admission 01/11/2020 demonstrates normal sinus rhythm, left atrial abnormality, and right bundle branch block. LABORATORY DATA: Includes a sodium 136, potassium 3.5, chloride 96, carbon dioxide 26, BUN 15, creatinine 0.8, glucose 113. White blood cell count 12.8 hematocrit 36.7, hemoglobin 11.5, platelet count 225,000. cc: MD Wilver Chahal MD
[2020-01-13] MEDS: FLEET MINERAL OIL ENEMA PR ONE ×2 (14:21→15:24)
--- NOTE | 2020-01-13 16:12 | PROGRESS NOTE ---
DATE: 01/13/2020 SUBJECTIVE: The patient's chart was reviewed. Overnight, patient developed intractable nausea and vomiting associated with bowel prep. Flat and upright of the abdomen was performed. A nasogastric tube was placed. Soon thereafter, patient developed atrial fibrillation with rapid ventricular response. He was transitioned to the PVC Unit. He was placed on a Cardizem drip. This morning, upon my arrival, patient noted some decreased abdominal discomfort. Distention had improved. With his bowel prep, unfortunately, he had has not had a bowel movement. Heart rate this morning remained elevated in atrial fibrillation. This afternoon, upon my discussion with nursing, patient had converted back to a normal sinus rhythm. He was more comfortable, but still had not had a bowel movement. There has been no evidence of fevers, chills, shortness of breath, or chest discomfort. OBJECTIVE: Vital signs: T-max 99.3 degrees, heart rate 53 to 154, respirations 16 to 21, blood pressure 119-151/61-82. General: No acute distress. Cardiovascular: Regular rate and rhythm. No significant murmurs, rubs, or gallops. Pulmonary: Clear to auscultation bilaterally. Abdomen: Slightly distended. Epigastric tenderness, decreased from yesterday. No rebound, positive bowel sounds. Extremities: Moves all extremities well. No significant clubbing, cyanosis, or edema. Dermatologic: Evaluation reveals no evidence of rash. LABORATORY DATA: White blood cell count 13.66, hemoglobin 11.6, hematocrit 37.2, platelet count is 237,000. Sodium 136, potassium 3.5, chloride 96, bicarbonate 26, BUN 15, creatinine 0.8, glucose 113, calcium 8.2, magnesium 1.6, total bilirubin 0.40, total protein 6.6, albumin 3.1, alkaline phosphatase 76, AST 13, ALT 15. CRP 83.52. TSH 2.23. Sedimentation rate 53. ASSESSMENT AND PLAN: 1. Intractable abdominal pain-differential diagnosis remains broad. Computed tomography scan suggested pancreatitis, however over-read suggested the possibility of left-sided adrenal inflammation. Esophagogastroduodenoscopy returned negative. Constipation also remains a concern. Colonoscopy was canceled today secondary to atrial fibrillation with rapid ventricular response. We continue towards working to improve his underlying constipation. He has been treated with GoLYTELY without success. We will provide a mineral oil enema this afternoon. If this proves unsuccessful, we will consider whether colonoscopy decompression is appropriate. 2. Intractable nausea and vomiting-patient has been placed nothing by mouth. Nasogastric tube is to suction. We will continue antiemetic agents as needed. 3. Steroid withdrawal myalgias/arthralgias-the patient's symptoms are controlled with Solu-Medrol therapy. 4. Questionable adrenal inflammation-this is quite interesting. The patient has no evidence of adrenal insufficiency as he is being treated with steroids. He certainly could have an underlying atypical viral infection, however this seems less likely. We will plan to repeat a computed tomography scan in the near future to confirm resolution. 5. Steroid responsive dermatitis-we will continue with Solu-Medrol. We will remain aware that this may be contributing to his elevated sedimentation rate and C-reactive protein. 6. Constipation-as above, I am concerned this may be causing his abdominal discomfort. We will treat with a mineral oil enema as noted. 7. Leukocytosis-this is modest. He remains afebrile. We will hold off on any further medical intervention at present time. 8. Disposition-at this point, patient continues to require intermediate care in the hospital setting. We will plan discharge home once appropriate. cc: Wilver Galdamez MD
--- NOTE | 2020-01-13 16:52 | ECHO REPORT ---
ORDER DATE: 01/13/2020 INTERPRETING PHYSICIAN: Kip Alfonso MD. CLINICAL INDICATIONS: Dyspnea and arrhythmia. M-MODE MEASUREMENTS: Left ventricle end diastole: 3.9 cm. Left ventricle end systole: 2.0 cm. Posterior wall: 1.2 cm. Interventricular septum: 1.2 cm. Left atrium: 3.6 cm. Aortic diameter: 3.6 cm. SUMMARY OF 2-DIMENSIONAL IMAGIN. Left ventricular function is normal. Ejection fraction is estimated at 60% to 65%. There is no wall motion abnormality noted. There is a mild degree of concentric LVH. 2. The mitral annulus shows no calcification. The mitral valve shows mild to moderate degree of regurgitation. 3. The Aortic valve also shows mild degree of regurgitation. 4. The pulse wave Doppler of mitral inflow shows "normal" E/A ratio. 5. Tissue Doppler of septal and lateral mitral annulus averages 9 cm. 6. Diastolic function appears to be normal. 7. The left atrium is probably moderately enlarged. The right atrium appears to be grossly normal. 8. The pulmonic valve is grossly unremarkable. 9. Pulmonary pressure is 40 to 45 mmHg. The inferior vena cava is at the upper limits of normal. 10.There is no pericardial effusion, no mass, and no thrombus. Clinical correlation is recommended. cc: MD Nahed Díaz PA Scott A. Matthews, MD MTDD
[2020-01-13] MEDS: LOVENOX SUBQ SCH (17:45)
[2020-01-14] MEDS: DILAUDID IV PRN ×8 (00:37→23:48)
[2020-01-14] MEDS: SOLU-MEDROL IV SCH ×2 (05:54→07:53)
[2020-01-14 06:14] LABS: BASO# 0.03 X1000 (0.0-0.2); BASO% 0.3 % (0.0-0.8); EOS# 0.07 X1000 (0.0-0.7); EOS% 0.6 % (0.0-10.0); HEMATOCRIT 35.8 % (42.0-52.0); HEMOGLOBIN 11.1 g/dL (14.0-18.0); IMM GRAN# 0.05 X1000 (0.0-0.04); IMM GRAN% 0.4 % (0.0-0.5); LYMPH# 0.96 X1000 (1.2-3.4); LYMPH% 8.4 % (20.5-51.1); MCH 30.3 PG (27-31); MCV 97.8 FL (81-99); MONO# 0.91 X1000 (0.11-0.59); MPV 10.7 FL (7.4-10.4); NEUT# 9.41 X1000 (1.4-6.5); NEUT% 82.3 % (42.2-75.2); PLT 206 X1000 (130-400); RBC 3.66 XMIL (4.7-6.1); WBC 11.43 X1000 (4.8-10.8)
[2020-01-14 06:33] LABS: AGAP 11; ALB/GLOB RATIO 0.9; ALBUMIN 3.1 g/dL (3.5-5.0); ALKALINE PHOSPHATASE 78 U/L (32-122); BUN 20 mg/dL (8-22); CALCIUM 8.4 mg/dL (8.8-10.2); CHLORIDE 92 mmol/L (98-107); COSMO 269; CREATININE 0.8 mg/dL (0.7-1.2); ESTIMATED GFR > 60; GLUCOSE 99 mg/dL (70-104); GOT 15 U/L (10-34); GPT 15 U/L (10-44); POTASSIUM 3.8 mmol/L (3.5-5.1); SODIUM 133 mmol/L (136-145); TCO2 30 mmol/L (25-35); TOTAL BILIRUBIN 0.46 mg/dL (0.20-1.00); TOTAL PROTEIN 6.6 g/dL (6.3-8.3)
--- NOTE | 2020-01-14 07:09 | GENERAL SURGERY PROGRESS NOTE ---
DATE: 01/14/2020 SUBJECTIVE: Patient seems to be doing a little bit better. He says he is feeling a little bit better. OBJECTIVE: Vital Signs: Patient is currently afebrile. Vital signs are stable. General exam: No acute distress. HEENT: Normocephalic, atraumatic. Pupils equal, round, reactive to light. Mucous membranes moist. Oropharynx benign. Neck: Supple. Trachea midline. Cardiovascular: Somewhat irregular. Lungs: Grossly clear. Abdomen: Soft, distended. He does have a reducible umbilical hernia. Bowel sounds auscultated, but they are faint. Extremities: Moves all extremities. Neurologic: Grossly intact. Skin: No signs of jaundice. Vascular: All extremities perfused. LABORATORY: White blood cell count is 11, which is down. Hematocrit is 35, which is also slightly down. Remainder of labs reviewed. ASSESSMENT AND PLAN: A 69-year-old gentleman with abdominal pain. 1. Abdominal pain. At this time, he has made some improvement with his abdominal pain. He had a small bowel movement, but still having nasogastric tube output. Hopefully, we are turning the corner as far as his abdominal pain and overall process, and can remove his nasogastric tube in the near future, but we will keep a close eye on him while he is in the hospital. His leukocytosis is improving. cc: MD Wilver Bautista MD
[2020-01-14 07:14] LABS: BANDS 4 % (0-1); HYPOCHROM 1+; LARGE PLATELETS 1+; LYMPHS 4 % (21-51); MONO 3 % (1-9); SEGS 87 % (42-75)
[2020-01-14] MEDS ORDERED: LOVENOX SUBQ SCH (09:00)
[2020-01-14] MEDS: PROTONIX IV SCH ×2 (09:23→20:28)
[2020-01-14] MEDS: CLINIMIX E 4.25%-5% SOLUTION 1,000 ML IV SCH (13:04)
[2020-01-14] MEDS ORDERED: MILK OF MAGNESIA PO ONE (13:16)
[2020-01-14] MEDS: SODIUM CHLORIDE 75 MEQ in CLINIMIX E 4.25%-5% SOLUTION 1,000 ML IV SCH (14:23)
--- NOTE | 2020-01-14 14:34 | Diag Imaging Result Doc PS360 ---
EXAM: ABDOMEN FLAT/UPRIGHT INDICATION: pain TECHNIQUE: 2 views COMPARISON: 01/13/2020 FINDINGS: Gas-distended loops of bowel that are predominantly colonic are essentially unchanged as compared to the previous study. Like the previous study, stool is seen in the proximal colon. No large volume free abdominal gas is identified. IMPRESSION: Approximately stable colonic distention. Electronically signed by Kane Castanon 01/14/2020 2:31 PM
[2020-01-14] MEDS ORDERED: DULCOLAX PR ONE (17:00)
[2020-01-14] MEDS: LOVENOX SUBQ SCH (17:11)
--- NOTE | 2020-01-14 17:16 | Diag Imaging Result Doc PS360 ---
EXAM: CHEST-1 VIEW INDICATION: NG Tube placement TECHNIQUE: One view COMPARISON: 01/13/2020 FINDINGS: The tip of the nasogastric tube projects well below the diaphragm and is assumed to be in the lumen of the stomach in the expected position. Gas-distended loops of bowel that is predominantly colonic are identified. There is stable atelectasis at the left lung base. IMPRESSION: Newly placed NG tube in the expected position as described. Electronically signed by Kane Castanon 01/14/2020 5:13 PM
--- NOTE | 2020-01-14 18:38 | PROGRESS NOTE ---
DATE: 01/14/2020 SUBJECTIVE: Upon my arrival this morning, patient was sitting upright in a chair. Yesterday with soapsuds enema, he did have a small, liquid bowel movement. The patient states he is passing very little gas. NG tube remains in place. Pain has decreased, but not resolved. Overnight, he had a very short run of atrial fibrillation which resolved with metoprolol therapy. He denies fevers, chills, shortness of breath, or chest discomfort at present time. OBJECTIVE: T-max 98.8 degrees, heart rate 76 to 154, respirations 16 to 18, blood pressure 119 to 173 over 61 to 91.General: No acute distress. Cardiovascular: Regular rate and rhythm. No significant murmurs, rubs, or gallops. Pulmonary: Clear to auscultation bilaterally. Abdomen: Soft, tenderness in the epigastrium, slightly distended. Positive bowel sounds. Extremities: Moves all extremities well. No significant clubbing, cyanosis, or edema. Dermatologic: Evaluation reveals no evidence of rash. LABORATORY DATA: White blood cell count 11.43, hemoglobin 11.1, hematocrit 35.8, platelet count is 206,000. Sodium 133, potassium 3.8, chloride 92, bicarb 30, BUN 20, creatinine 0.8, glucose 99, calcium 8.4, total bilirubin 0.46, total protein 6.6, albumin 3.1, alkaline phosphatase 78, AST 15, ALT 15. ASSESSMENT/PLAN: 1. Intractable abdominal pain-differential diagnosis remains broad. Flat and upright today suggests stool present in the proximal colon and dilated loops of primarily large intestines. At this point, we will continue to treat the possibility of constipation-associated pain. We will provide a soapsuds enema followed by Dulcolax suppository. We will place milk of magnesia through his NG tube. Once he is affectively evacuating his large bowel, we will determine if further evaluation is necessary should pain continue. We will consider CT scan early in the week. 2. Intractable nausea, vomiting-patient's symptoms are controlled with nasogastric tube suction. We will continue antiemetics as needed. 3. Steroid withdrawal myalgias/arthralgias-we will continue patient on Solu-Medrol therapy. 4. Questionable adrenal inflammation-this is a somewhat curious finding per CT scan. Patient is demonstrating no evidence of adrenal insufficiency as he is receiving Solu-Medrol. An underlying viral infection is possible but seems less likely. As above, we will consider repeating CT scan in the near future. 5. Steroid responsive dermatitis-symptoms are controlled with Solu-Medrol. This may be contributing to his elevated sedimentation rate and C. reactive protein. 6. Leukocytosis-this is modest. There is a left shift suggesting this may be steroid associated. He is afebrile. We will follow. 7. Disposition. At this point, patient continues to require [facility] care in a hospital setting. We will plan discharge home once appropriate. cc: Wilver Galdamez MD
--- NOTE | 2020-01-14 20:34 | EKG Report ---
Test Performed on : 01/14/2020 06:17:29 AM Test Reason : tachycardia Blood Pressure : / mmHG Vent. Rate : 075 BPM Atrial Rate : 075 BPM P-R Int : 140 ms QRS Dur : 140 ms QT Int : 402 ms P-R-T Axes : 068 -21 002 degrees QTc Int : 448 ms Normal sinus rhythm. Possible Left atrial enlargement Right bundle branch block Left ventricular hypertrophy Abnormal ECG When compared with ECG of 13-JAN-2020 09:36, (Unconfirmed) Vent. rate has decreased BY 75 BPM T wave inversion no longer evident in Anterior leads Confirmed by Wilver Galdamez MD ([id number]) on 01/15/2020 5:59:12 PM
[2020-01-15] MEDS: SOLU-MEDROL IV SCH ×2 (05:41→06:08)
[2020-01-15] MEDS: SODIUM CHLORIDE 75 MEQ in CLINIMIX E 4.25%-5% SOLUTION 1,000 ML IV SCH ×3 (05:41→19:53)
[2020-01-15] MEDS: DILAUDID IV PRN ×3 (05:42→15:01)
[2020-01-15 05:59] LABS: BASO# 0.02 X1000 (0.0-0.2); BASO% 0.2 % (0.0-0.8); EOS# 0.03 X1000 (0.0-0.7); EOS% 0.3 % (0.0-10.0); HEMATOCRIT 33.5 % (42.0-52.0); HEMOGLOBIN 10.5 g/dL (14.0-18.0); IMM GRAN# 0.05 X1000 (0.0-0.04); IMM GRAN% 0.5 % (0.0-0.5); LYMPH# 0.81 X1000 (1.2-3.4); LYMPH% 7.8 % (20.5-51.1); MCHC 31.3 g/dL (33-37); MCV 95.7 FL (81-99); MONO# 0.71 X1000 (0.11-0.59); MONO% 6.8 % (1.7-9.3); MPV 11.4 FL (7.4-10.4); NEUT# 8.78 X1000 (1.4-6.5); NEUT% 84.4 % (42.2-75.2); PLT 200 X1000 (130-400); RDW 14.5 % (11.5-14.5)
[2020-01-15 06:07] LABS: AGAP 9; ALB/GLOB RATIO 0.8; ALBUMIN 2.7 g/dL (3.5-5.0); ALKALINE PHOSPHATASE 73 U/L (32-122); BUN 19 mg/dL (8-22); CALCIUM 8.6 mg/dL (8.8-10.2); CHLORIDE 95 mmol/L (98-107); COSMO 273; CREATININE 0.7 mg/dL (0.7-1.2); ESTIMATED GFR > 60; GLUCOSE 108 mg/dL (70-104); GOT 12 U/L (10-34); GPT 12 U/L (10-44); POTASSIUM 4.1 mmol/L (3.5-5.1); SODIUM 135 mmol/L (136-145); TCO2 31 mmol/L (25-35); TOTAL BILIRUBIN 0.37 mg/dL (0.20-1.00); TOTAL PROTEIN 5.9 g/dL (6.3-8.3)
[2020-01-15 06:43] LABS: BANDS 6 % (0-1); EOS 2 % (1-10); LYMPHS 4 % (21-51); MONO 2 % (1-9); SEGS 86 % (42-75)
--- NOTE | 2020-01-15 07:09 | GENERAL SURGERY PROGRESS NOTE ---
DATE: 01/15/2020 SUBJECTIVE: The patient says he is feeling a little bit better today. He says he has passed a little bit of gas this morning. OBJECTIVE: Vital Signs: The patient is currently afebrile. Vital signs are stable. General Examination: No acute distress. HEENT: Normocephalic, atraumatic. Pupils equal, round, reactive to light. Mucous membranes moist. Oropharynx benign. Neck: Supple. Trachea midline. Cardiovascular: Regular rate and rhythm. Lungs: Grossly clear. Abdomen: Soft. More active bowel sounds noted. Umbilical hernia is unchanged. Extremities: Moves all extremities. Neurologic: Grossly intact. Skin: No signs of jaundice. Vascular: All extremities perfused. Laboratory: White blood cell count is 10, hematocrit 33, platelet count 200,000. Remainder of labs reviewed. ASSESSMENT AND PLAN: A 69-year-old gentleman with abdominal pain. Abdominal pain. He has had some improvement and some slight return of bowel function. I had an extensive discussion with the patient and Dr. Galdamez yesterday evening. We will plan on repeating a CT scan with oral and intravenous contrast today. He has had some return of bowel function but again, his nasogastric tube output has been slightly high but he has been taking in oral so some of this might be artificially high secondary to oral intake. I still think we need to get a CT scan with oral and intravenous contrast to follow up on the inflammation that is reported around his adrenal gland and to see how well the contrast is moving. His constipation appears to be more in his proximal colon and there seems to be some narrowing around his splenic flexure. It is difficult to see fully on his initial CT scan so we will try reassess this a little bit more on the repeat scan today. cc: MD Wilver Bautista MD
[2020-01-15] MEDS: PROTONIX IV SCH ×3 (09:00→22:45)
--- NOTE | 2020-01-15 10:19 | Diag Imaging Result Doc PS360 ---
EXAM: CT ABD/PELVIS W/PO AND IV CON INDICATION: f/u on adrenal inflammation and bowel obstruction TECHNIQUE: This exam was performed using automated exposure control, adjustment of mA or kV according to patient size, and/or use of iterative reconstruction technique. COMPARISON: 01/11/2020 FINDINGS: There has been development of very small bilateral pleural effusions and bibasilar atelectasis. There is vicarious excretion of contrast in the gallbladder lumen from the previous recent CT. The gallbladder, liver, and spleen are unremarkable, otherwise. During the interval, there has been development of prominent thickening of both adrenal glands and there is increase in inflammatory stranding around both adrenal glands suggesting acute inflammation. The pancreas is grossly unremarkable on the current study. The kidneys and urinary bladder are unremarkable. The distal sigmoid colon and rectal todd appear mildly thickened. This may be due to underdistention. However, component of mild colitis/proctitis is possible. No other bowel wall thickening is identified. There is moderate distention of the cecum, ascending colon, and transverse with air-fluid levels, nonspecific. There is nothing that would necessarily indicate obstruction, however. An NG tube is seen in the stomach. The remainder of the GI tract is essentially unremarkable. There is diffuse mild mesenteric edema throughout the abdomen that has developed during the interval and mild body wall edema suggesting anasarca. There is trace free fluid layering in the pelvis. IMPRESSION: 1.Interval significant thickening of both adrenal glands with an increase in surrounding inflammatory changes on the left and development of inflammatory changes on the right. 2.Mild thickening of the distal sigmoid colon and rectal todd. This may be, at least in part, due to underdistention. A component of mild colitis/proctitis is possible. 3.Moderate distention of the ascending and transverse colon with air-fluid levels. 4.Development of very small bilateral effusions and bibasilar atelectasis. 5.Development of mild diffuse mesenteric edema and mild body wall edema suggesting mild anasarca. Electronically signed by Kane Castanon 01/15/2020 10:16 AM
[2020-01-15] MEDS ORDERED: DULCOLAX PR ONE (11:46)
--- NOTE | 2020-01-15 12:37 | GASTROENTEROLOGY PROGRESS NOTE ---
DATE: 01/15/2020 SUBJECTIVE: Strickland was sitting up in the chair. Reports some improvement as he passed some flatus this morning. He denies any abdominal pain, but has had Dilaudid for his back pain. NG tube is still placed on suction, but has not had much of drainage from that. He reports no fever or chills. Has not had any bowel movement since yesterday, where he had a small amount of stool. OBJECTIVE: Vital Signs: Today, temperature 98.2 degrees, pulse 70 per minute, breathing at 14, blood pressure 151/81. Abdomen: Full, soft. It is nontender. I could not appreciate any mass or visceromegaly, but he did have sluggish bowel sounds. IMAGING AND LABORATORY DATA: Labs were reviewed, which showed WBC of 10.40, hemoglobin 10.5, hematocrit 33.5, MCV 95.7, with platelets of 200,000. Sodium 135 (up from 133), potassium 4.1, chloride 95, bicarb is 31, BUN is 19, creatinine 0.7, calcium was 8.6, but corrected for low calcium is within normal. CT scan of the abdomen and pelvis was done this morning, which showed moderate distention of the right colon, including the ascending and transverse colon with air- fluid levels, but no distinct obstruction was seen. He did have some thickening of the sigmoid colon and rectal wall, most likely from being collapsed. IMPRESSION: 1. Abdominal pain, better. 2. Nausea and vomiting, improved. Nasogastric tube is still on low intermittent suction. I have recommended to clamp the nasogastric tube since he did not have much of aspirate, and start ice chips and sips. In fact, he is having ice chips and sips since this morning. Recheck residual in 4 hours. Continue current treatment, except pain medication. I would recommend to back off from narcotics and see if that helps his colon wake up or regain its contractility. He is already on Cardizem drip for his atrial fibrillation, a calcium channel kris which can also cause decreased motility of the gut. I would repeat Dulcolax suppository today, and see the results. Since colonoscopy cannot be done because of lack of prep, option 1 would be to do a water-soluble enema imaging study, such as Gastrografin enema imaging study, or do a colonoscopy after an enema to prep as much as we could, and then decompress his colon. I have explained my findings and plan to the patient. He understands. All his pertinent questions were answered. Case will be picked up by Dr. Soto tomorrow. cc: MD Wilver Olvera MD
--- NOTE | 2020-01-15 14:25 | PROGRESS NOTE ---
DATE: 01/15/2020 SUBJECTIVE: Upon my arrival this morning, the patient was resting. Upon waking, the patient states overall, he is feeling improved. The patient did pass some flatus over the course of the last 24 hours. He has had some liquid stool. Pain remains present, but is decreasing in intensity. The Dilaudid treatment has decreased in frequency necessary. He denies fevers, chills, nausea, vomiting, shortness of breath, or chest discomfort. NG tube remains in place. OBJECTIVE: Vital Signs: T-max 98.2 degrees, heart rate 68 to 75, respirations 14 to 20, blood pressure 151 to 178/80 to 93. General: No acute distress. Cardiovascular: Regular rate and rhythm. No significant murmurs, rubs, or gallops. Pulmonary: Clear to auscultation bilaterally. Abdomen: Soft, slightly distended. Tenderness in the epigastrium. No significant guarding or rebound. Positive bowel sounds. Extremities: Moves all extremities well. No significant clubbing, cyanosis, or edema. Dermatologic: No evidence of rash. LABORATORY DATA: White blood cell count 10.40, hemoglobin 10.5, hematocrit 33.5, platelet count 200,000. Sodium 135, potassium 4.1, chloride 95, bicarb 31, BUN 19, creatinine 0.7, glucose 108, calcium 8.6. Total bilirubin 0.37, total protein 5.9, albumin 2.7, alkaline phosphatase 73, AST 12, ALT 12. ASSESSMENT AND PLAN: 1. Intractable abdominal pain. Interestingly, repeat CT scan this morning suggests interval significant thickening of both adrenal glands, with an increase in surrounding inflammatory changes on the left, and development of inflammatory changes on the right. At this point, I suspect his primary diagnosis is that of bilateral adrenalitis. Possible etiologies include infectious (cytomegalovirus, Winifred-Donis virus, tuberculosis, histoplasmosis) and inflammatory (autoimmune). At this point, supportive care is warranted. I suspect the colonic ileus is likely secondary to his acute infection. 2. Constipation/colonic ileus. CT scan suggests clearance of a vast majority of the stool present. He continues to have some dilation of his large intestine. This likely is secondary to his acute illness. He is passing flatus at present time, suggesting a resolving condition. 3. Intractable nausea and vomiting. Symptoms are controlled with nasogastric tube suction. I suspect that we will be able to discontinue this tomorrow. There is no evidence of small- bowel dilatation. 4. Steroid withdrawal myalgias/arthralgias. The patient is treated with Solu-Medrol. We will continue this. 5. Anticipated adrenal insufficiency in the setting of bilateral adrenalitis. I anticipate that the patient likely will become adrenally insufficient. At this point, the addition of steroids are covering for any possible insufficiency. We will follow this. 6. Steroid-responsive dermatitis. Symptoms are controlled with Solu-Medrol therapy. 7. Leukocytosis. The patient has achieved resolution. 8. Disposition. At this point, the patient continues to require [facility] care in a hospital setting. We will plan discharge home once appropriate. cc: Wilver Galdamez MD
[2020-01-15] MEDS: LOVENOX SUBQ SCH (17:03)
--- NOTE | 2020-01-15 17:30 | EKG Report ---
Test Performed on : 01/15/2020 06:25:02 AM Test Reason : tachycardia Blood Pressure : / mmHG Vent. Rate : 073 BPM Atrial Rate : 073 BPM P-R Int : 136 ms QRS Dur : 134 ms QT Int : 422 ms P-R-T Axes : 074 -12 017 degrees QTc Int : 464 ms Normal sinus rhythm. Right bundle branch block Abnormal ECG When compared with ECG of 14-JAN-2020 06:17, (Unconfirmed) No significant change was found Confirmed by Wilver Galdamez MD ([id number]) on 01/15/2020 6:07:04 PM
[2020-01-16] MEDS: SOLU-MEDROL IV SCH ×2 (05:18→06:14)
[2020-01-16] MEDS ORDERED: SODIUM CHLORIDE 0.9% 10 ML ONE ×2 (06:02→07:08)
[2020-01-16] MEDS: SODIUM CHLORIDE 75 MEQ in CLINIMIX E 4.25%-5% SOLUTION 1,000 ML IV SCH ×3 (06:14→20:28)
[2020-01-16 06:35] LABS: BASO# 0.04 X1000 (0.0-0.2); BASO% 0.4 % (0.0-0.8); EOS# 0.06 X1000 (0.0-0.7); EOS% 0.6 % (0.0-10.0); HEMATOCRIT 34.2 % (42.0-52.0); HEMOGLOBIN 10.9 g/dL (14.0-18.0); IMM GRAN# 0.12 X1000 (0.0-0.04); IMM GRAN% 1.2 % (0.0-0.5); LYMPH# 0.71 X1000 (1.2-3.4); LYMPH% 7.1 % (20.5-51.1); MCH 30.4 PG (27-31); MCHC 31.9 g/dL (33-37); MCV 95.5 FL (81-99); MONO# 1.07 X1000 (0.11-0.59); MONO% 10.7 % (1.7-9.3); MPV 11.7 FL (7.4-10.4); NEUT# 8.04 X1000 (1.4-6.5); PLT 216 X1000 (130-400); RBC 3.58 XMIL (4.7-6.1); RDW 14.6 % (11.5-14.5); WBC 10.04 X1000 (4.8-10.8)
[2020-01-16 07:07] LABS: AGAP 13; ALBUMIN 2.8 g/dL (3.5-5.0); ALKALINE PHOSPHATASE 86 U/L (32-122); BUN 21 mg/dL (8-22); CALCIUM 8.4 mg/dL (8.8-10.2); CHLORIDE 97 mmol/L (98-107); COSMO 270; CREATININE 0.7 mg/dL (0.7-1.2); ESTIMATED GFR > 60; GLUCOSE 78 mg/dL (70-104); GOT 15 U/L (10-34); GPT 14 U/L (10-44); POTASSIUM 3.6 mmol/L (3.5-5.1); SODIUM 134 mmol/L (136-145); TCO2 24 mmol/L (25-35); TOTAL PROTEIN 5.7 g/dL (6.3-8.3)
[2020-01-16] MEDS: PROTONIX IV SCH ×2 (08:28→20:29)
--- NOTE | 2020-01-16 09:56 | GASTROENTEROLOGY PROGRESS NOTE ---
DATE: 01/16/2020 SUBJECTIVE: Mr. Strickland is a 69-year-old, male sitting in bed. The patient mentioned feeling much better today. He is having an NG tube in place. The patient also mentioned that his abdominal pain is much better. He has slight epigastric pain but more pain is in his back area. The patient did have one bowel movement this morning. OBJECTIVE: Vital Signs: Temperature 98.7 degrees, pulse 72, respirations 18, blood pressure 169/82, oxygen saturation is 92% on room air. The patient's weight is 214 pounds. BMI is 31.6 kg/m2. General: He is alert, oriented x3, and in no acute distress. HEENT: Pale conjunctivae. No icterus. PERRL. Neck: Supple. Lungs: Clear to auscultation. Cardiovascular: Regular rate and rhythm. Abdomen: Mildly distended. Soft. Mildly tender in the epigastric area. Active bowel sounds heard in all 4 quadrants. Extremities: No clubbing, no cyanosis, no edema. Pedal pulses 2+ present bilaterally. Neurologic: Alert and oriented x3. Labs: WBCs are 10.04, RBCs 3.58, hemoglobin is 10.9, hematocrit is 34.2, platelet count is 216,000. Sodium 134, potassium 3.6, chloride is 97, carbon dioxide is 24, anion gap is 13, BUN is 21, creatinine is 0.7, glucose is 78, calcium is 8.4. Total bilirubin 0.40, AST 15, ALT 14, alkaline phosphatase is 86, albumin is 2.8. IMAGING: The patient's abdomen and pelvis CT yesterday showed interval significant thickening of both adrenal glands with an increase in surrounding inflammatory changes on the left and development of inflammatory changes on the right. Mild thickening of the distal sigmoid colon and rectal todd. This is a component of mild colitis or proctitis is possible. Moderate distention of the ascending and transverse colon with air-fluid levels. Development of very small bilateral effusions and bibasilar atelectasis. Development of mild diffuse mesenteric edema and mild body wall edema, suggesting mild anasarca. IMPRESSION AND PLAN: 1. Epigastric pain. 2. Nausea and vomiting. 3. Constipation. 4. 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 6. History of urticaria dermatitis. 7. Anemia. 8. History of chronic steroid use. 9. GERD. 10. Gastritis. PLAN: Mr. Strickland is a 69-year-old, male with a history of bronchiolitis obliterans and urticaria dermatitis. GI is following him for his abdominal pain, nausea, and vomiting. The patient's nausea and vomiting currently is under control. His NG tube was removed today. His abdominal pain in the epigastric area is improving. The patient is having positive bowel movements. The patient is currently receiving Clinimix at 75 mL for his nutrition. He is on PPIs twice a day. He is receiving antiemetic, Zofran, for his nausea and vomiting, and the patient is also on steroids for his dermatitis. We will continue to monitor the patient and follow the plan of care per PCP. PCP will be evaluating the etiology of bilateral adrenalitis.This plan was discussed with Dr. Soto. Please call us for any further questions or concerns. Dictated by ERICA Mayo for Jb Soto MD cc: MD Wilver Henriquez MD I have seen and examined the patient myself and I agree with the above plan of care. Please call us with any further questions or concerns. MTDD
--- NOTE | 2020-01-16 11:30 | GENERAL SURGERY PROGRESS NOTE ---
DATE: 01/16/2020 SUBJECTIVE: Jung is improved. His bowel function is improved. His abdomen is soft and minimally tender. I agree with removal of his NG tube and start him on clear liquids. No further recommendations currently. cc: MD Wilver Mclain MD
--- NOTE | 2020-01-16 16:51 | PROGRESS NOTE ---
DATE: 01/16/2020 SUBJECTIVE: The patient continues without chest discomfort, shortness of breath, or palpitations. He is having bowel movements and abdominal discomfort seems to have improved at this point. He continues in sinus rhythm with frequent premature supraventricular complexes. OBJECTIVE: Blood pressure 168/78, heart rate 69, oxygen saturation 97% on room air. Cardiac Examination: Reveals a regular rate and rhythm with occasional extrasystole. No murmur or gallop could be appreciated. Chest: Clear to auscultation. There is no evidence of peripheral edema. Laboratory Data: Includes a white blood cell count of 10.04, hematocrit 34.2, hemoglobin 10.9, platelet count 216,000. Sodium 134, potassium 3.6, chloride 97, carbon dioxide 24, BUN 21, creatinine 0.7, glucose 78. IMPRESSION: 1. Recent atrial tachycardia episodes versus atypical atrial flutter in the setting of acute noncardiac illness. Patient's tendency for atrial tachyarrhythmias seems to have diminished lately as his abdominal process improves. 2. Acute abdominal process with abdominal pain and bowel obstruction versus ileus. He is improving with conservative measures and started having bowel movements. 3. Hyperlipidemia. 4. 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 This was reportedly secondary to methotrexate. RECOMMENDATIONS: 1. Continue to monitor cardiac rhythm. 2. Given clinical improvement and stability from a cardiac standpoint, it is reasonable for him to go home soon depending on whether he continues to progress from a standpoint of his acute abdominal process. I will plan on seeing him again on an as-needed basis. cc: MD Wilver Chahal MD
[2020-01-16] MEDS: LOVENOX SUBQ SCH (17:22)
--- NOTE | 2020-01-16 20:22 | PROGRESS NOTE ---
DATE: 01/16/2020 SUBJECTIVE: Upon my arrival this morning, patient was noted to have significant improvement. He notes decreased abdominal pain. He has not required pain medications in approximately 24 hours. NG tube has remained on suction. Suction has remained intact but clamped over the last 24 hours. He has had no significant nausea. He is passing a minimal amount of flatus. He denies fevers, chills, nausea, vomiting, shortness of breath, or chest discomfort. OBJECTIVE: Vitals: T-max 99.0 degrees, heart rate 65 to 79, respirations 16-18, blood pressure 150 to 168 over 72 to 92. General: Well nourished, well developed, no acute distress. Cardiovascular: Regular rate and rhythm. No significant murmurs, rubs, or gallops. Pulmonary: Clear to auscultation bilaterally. Abdomen: Soft. Minimal tenderness in the epigastric region. Nondistended. Positive bowel sounds. Extremities: Moves all extremities well. No significant clubbing, cyanosis, or edema. Dermatologic evaluation: Reveals no evidence of rash. LABORATORY DATA: White blood cell count 10.04 hemoglobin 10.9, hematocrit 34.2, platelet count is 216,000. Sodium 134, potassium 3.6, chloride 97, bicarb 24, BUN 21, creatinine 0.7, glucose 78, calcium 8.4, total bilirubin 0.40, total protein 5.7, albumin 2.8, alkaline phosphatase 86, AST 15, ALT 14. ASSESSMENT AND PLAN: 1. Intractable abdominal pain--This likely is a consequence of bilateral adrenalitis associated with a colonic ileus. The patient is passing gas. His pain is improving. We will continue evaluation of bilateral adrenalitis following cytomegalovirus and Winifred-Donis virus antibodies. We will send for a QuantiFERON Gold evaluation for tuberculosis. At this point, with his multiple autoimmune diagnoses, I suspect this may end up being autoimmune in etiology. 2. Constipation/colonic ileus--Patient does appear to be having some improvement. We will continue supportive care. 3. Intractable nausea and vomiting--We will discontinue nasogastric tube. We will start clear liquids. 4. Steroid withdrawal myalgias/arthralgias--We will continue Solu-Medrol. Symptoms are controlled. 5. Anticipated adrenal insufficiency in the setting of bilateral adrenalitis--I anticipate patient will become adrenally insufficient with time. We will continue glucocorticoid replacement as noted. With time, he may require [*]corticoid as well. 6. Steroid responsive dermatitis--We will continue Solu-Medrol. 7. Leukocytosis--This is improving. We will follow this. 8. Disposition--At this point, patient continues to require residential care in a hospital setting. We will plan discharge home once appropriate. cc: Wilver Galdamez MD
[2020-01-17] MEDS ORDERED: SODIUM CHLORIDE 0.9% 0 ML ONE (05:49)
[2020-01-17] MEDS: SOLU-MEDROL IV SCH (06:05)
[2020-01-17 06:25] LABS: BASO# 0.03 X1000 (0.0-0.2); BASO% 0.3 % (0.0-0.8); EOS# 0.08 X1000 (0.0-0.7); EOS% 0.9 % (0.0-10.0); HEMATOCRIT 33.7 % (42.0-52.0); HEMOGLOBIN 10.8 g/dL (14.0-18.0); IMM GRAN# 0.19 X1000 (0.0-0.04); IMM GRAN% 2.1 % (0.0-0.5); LYMPH# 0.85 X1000 (1.2-3.4); LYMPH% 9.5 % (20.5-51.1); MCH 30.3 PG (27-31); MCV 94.4 FL (81-99); MONO# 1.01 X1000 (0.11-0.59); MONO% 11.2 % (1.7-9.3); MPV 11.7 FL (7.4-10.4); NEUT# 6.82 X1000 (1.4-6.5); PLT 220 X1000 (130-400); RBC 3.57 XMIL (4.7-6.1); RDW 14.4 % (11.5-14.5); WBC 8.98 X1000 (4.8-10.8)
[2020-01-17 06:51] LABS: AGAP 12; ALB/GLOB RATIO 0.9; ALBUMIN 2.8 g/dL (3.5-5.0); ALKALINE PHOSPHATASE 84 U/L (32-122); BUN 18 mg/dL (8-22); CALCIUM 8.2 mg/dL (8.8-10.2); CHLORIDE 98 mmol/L (98-107); COSMO 268; CREATININE 0.7 mg/dL (0.7-1.2); ESTIMATED GFR > 60; GLUCOSE 90 mg/dL (70-104); GOT 18 U/L (10-34); GPT 18 U/L (10-44); POTASSIUM 3.6 mmol/L (3.5-5.1); SODIUM 133 mmol/L (136-145); TCO2 23 mmol/L (25-35); TOTAL PROTEIN 5.8 g/dL (6.3-8.3)
[2020-01-17] MEDS ORDERED: SODIUM CHLORIDE 0.9% 10 ML ONE (07:51)
[2020-01-17] MEDS: PROTONIX IV SCH (09:09)
--- NOTE | 2020-01-17 10:22 | GASTROENTEROLOGY PROGRESS NOTE ---
DATE: 01/17/2020 SUBJECTIVE: Mr. Strickland is a 69-year-old, male sitting in the recliner. The patient mentioned feeling better. His NG tube was taken off. The patient has denied any nausea, vomiting, or abdominal pain. He was on a clear liquid diet. We have advanced his diet to GI soft. The patient did have one bowel movement this morning. OBJECTIVE: Vital Signs: Temperature 98.9 degrees, pulse 71, respirations 18, blood pressure 141/84, oxygen saturation 94% on room air. The patient's weight is 212 pounds. BMI is 31.4 kg/m2. General: He is alert, oriented x3, and in no acute distress. HEENT: Pale conjunctivae. No icterus. PERRL. Neck: Supple. Lungs: Clear to auscultation. Cardiovascular: Regular rate and rhythm. Abdomen: Soft, nontender, nondistended. Active bowel sounds heard in all 4 quadrants. Extremities: No clubbing, no cyanosis, no edema. Pedal pulses 2+ present bilaterally. Neurologic: He is alert, oriented x3. Labs: WBCs are 8.98, RBCs 3.57, hemoglobin is 10.8, hematocrit is 33.7, platelet count is 220,000. Sodium 133, potassium is 3.6, chloride is 98, carbon dioxide 23, anion gap is 12, BUN is 18, creatinine is 0.7, glucose is 90, calcium is 8.2. Total bilirubin 0.40, AST 18, ALT 18, alkaline phosphatase 84, albumin is 2.8. IMPRESSION AND PLAN: 1. Epigastric pain. 2. Nausea and vomiting, resolved. 3. Constipation, resolved. 4. Bilateral adrenalitis. 5. Bronchiolitis obliterans. 6. Urticarial dermatitis. 7. Anemia. 8. History of chronic steroid use. 9. Gastroesophageal reflux disease. 10. Gastritis. PLAN: Mr. Strickland is a 69-year-old, male with a history of bronchiolitis obliterans and urticarial dermatitis. GI is following him for his abdominal pain. The patient has denied any abdominal pain today. He has denied any nausea and vomiting. His NG tube has been removed. The patient has been advanced from clear liquids to a GI soft diet. We will continue patient with PPIs twice a day, antiemetic, Zofran, every 6 hours. The patient is also on Solu-Medrol IV per PCP for his dermatitis. We will continue to monitor the patient and follow the plan of care per PCP. This plan was discussed with Dr. Dixon. Please call us for any further questions or concerns. Dictated by ERICA Mayo for Dawson Dixon MD cc: Wilver Galdamez MD MTDD
--- NOTE | 2020-01-17 15:54 | PROGRESS NOTE ---
DATE: 01/17/2020 SUBJECTIVE: Upon my arrival this morning, patient stated he was doing reasonably well. Yesterday, NG tube was removed. Clear liquid diet was tolerated. The pain remains reasonably controlled. His energy level remains very low. This morning we transitioned patient to a GI soft diet. This afternoon, patient states he remains profoundly fatigue, but improved from admission. Thus far, he has tolerated this reasonably well. He denies fevers, chills, nausea, vomiting, shortness of breath, or chest discomfort. OBJECTIVE: Vital signs: T-max 98.9 degrees, heart rate 65 to 71, respirations 16 to 19, blood pressure 141 to 160 over 78 to 84. General: No acute distress. Cardiovascular: Regular rate and rhythm. No significant murmurs, rubs, or gallops. Pulmonary: Clear to auscultation bilaterally. Abdomen: Soft, nontender, nondistended. Positive bowel sounds. Extremities: Moves all extremities well. No significant clubbing, cyanosis, or edema. Dermatologic: Evaluation reveals no evidence of rash. LABORATORY DATA: White blood cell count 8.98, hemoglobin 10.8, hematocrit 33.7, platelet count 220,000. Sodium 133, potassium 3.6, chloride 98, bicarb 23, BUN 18, creatinine 0.7, glucose 90, calcium 8.2, total bilirubin 0.40, total protein 5.8, albumin 2.8, alkaline phosphatase 84, AST 18, ALT 18. CMV, IgG, and IgM returned negative. ASSESSMENT AND PLAN: 1. Intractable abdominal pain - This is an interesting manifestation of bilateral adrenalitis with a colonic ileus. With slow resolution of each, symptoms are improving. He has not required pain medications in over 24 hours. 2. Bilateral adrenalitis - CMV and EBV antibodies returned negative. QuantiFERON gold evaluation for tuberculosis is pending. At this point, I remain very concerned this likely is autoimmune with patient's multiple other autoimmune diagnoses. For now, we will continue supportive care. 3. Constipation/colonic ileus - This likely was a consequence of his bilateral adrenalitis. At present time, he is passing stool and flatus. He does appear to have resolved this clinically. 4. Intractable nausea and vomiting - Patient's NG tube has been removed. Thus far, he is tolerating a bland GI diet. We will slowly advance. 5. Anticipated adrenal insufficiency - In the setting of bilateral adrenalitis, I anticipate patient likely will become adrenally insufficient with time. For now, we will continue prednisone intervention for underlying steroid responsive dermatitis. We will need to consider adding mineral corticoid intervention in the future depending on labs and blood pressure. 6. Atrial fibrillation with rapid ventricular response - This was reactive to abdominal symptoms. He remains in a sinus-generated rhythm at present time. He requires no intervention. 7. Steroids responsive dermatitis - We will continue patient on Solu-Medrol therapy. We will transition back to prednisone tomorrow. 8. Leukocytosis - The patient has achieved resolution. We will follow this. 9. Disposition - At this point, patient continues to require care home care in a hospital setting. We will plan discharge home once appropriate. cc: Wilver Galdamez MD
[2020-01-17] MEDS: LOVENOX SUBQ SCH (17:36)
[2020-01-18 06:17] LABS: AGAP 12; ALB/GLOB RATIO 0.9; ALBUMIN 3.2 g/dL (3.5-5.0); ALKALINE PHOSPHATASE 95 U/L (32-122); BUN 18 mg/dL (8-22); C REACTIVE PROT QUANT 45.63 mg/L (0.00-5.00); CALCIUM 8.9 mg/dL (8.8-10.2); CHLORIDE 98 mmol/L (98-107); COSMO 268; CREATININE 0.9 mg/dL (0.7-1.2); ESTIMATED GFR > 60; GLUCOSE 98 mg/dL (70-104); GOT 27 U/L (10-34); GPT 27 U/L (10-44); POTASSIUM 4.1 mmol/L (3.5-5.1); SODIUM 133 mmol/L (136-145); TCO2 23 mmol/L (25-35); TOTAL BILIRUBIN 0.44 mg/dL (0.20-1.00); TOTAL PROTEIN 6.7 g/dL (6.3-8.3)
[2020-01-18] MEDS ORDERED: PROTONIX PO SCH (07:00)
[2020-01-18 08:17] VITALS: BP 138/73
[2020-01-18] MEDS ORDERED: PREDNISONE PO SCH (09:00)
--- NOTE | 2020-01-18 11:07 | GASTROENTEROLOGY PROGRESS NOTE ---
DATE: 01/18/2020 SUBJECTIVE: Mr. Strickland is a 69-year-old, male, resting in bed. The patient has denied any nausea, vomiting, or abdominal pain. The patient is on a GI soft diet and was able to tolerate his diet fairly well. He has been having positive bowel movements. OBJECTIVE: Vital Signs: Temperature 99.1 degrees, pulse 64, respirations 18, blood pressure 138/73, oxygen saturation 97% on room air. The patient's weight is 208 pounds. BMI is 30.8 kg/m2. General: He is alert, oriented x3, and in no acute distress. HEENT: Pale conjunctivae. No icterus. PERRL. Neck: Supple. Lungs: Clear to auscultation. Cardiovascular: Regular rate and rhythm. Abdomen: Soft, nontender, nondistended. Active bowel sounds heard in all 4 quadrants. Extremities: No clubbing, no cyanosis, no edema. Pedal pulses 2+ present bilaterally. Neurologic: He is alert, oriented x3. The patient has no new hematology. Chemistry: Sodium 133, potassium 4.1, chloride 98, carbon dioxide 23, anion gap 12, BUN 18, creatinine is 0.9, glucose is 98, calcium is 8.9. Total bilirubin 0.44, AST 27, ALT 27, alkaline phosphatase is 95, albumin is 3.2. IMPRESSION AND PLAN: 1. Epigastric pain, resolved. 2. Nausea and vomiting, resolved. 3. Constipation, resolved. 4. Bilateral adrenalitis. 5. Bronchiolitis obliterans. 6. Urticaria dermatitis. 7. Anemia. 8. History of chronic steroid use. 9. Gastroesophageal reflux disease. 10. Gastritis. PLAN: Mr. Strickland is a 69-year-old, male with a history of bronchiolitis obliterans and urticaria dermatitis. GI has been following him for his abdominal pain. Currently, the patient's abdominal pain has been resolved. His nausea and vomiting have been resolved. The patient is on a GI soft diet and is able to tolerate his diet fairly well. He has discharge orders to go home.Patient needs to continue taking Miralax PRN, Metamucil at HS and follow a high fibre diet. We will continue to monitor the patient and we have asked the patient to follow us up in 2 weeks. We will do telehealth. This plan was discussed with Dr. Dixon. Please call us for any further questions or concerns. Dictated by ERICA Mayo for Dawson Dixon MD cc: MD ANIA Barnett
--- NOTE | 2020-01-18 16:14 | DISCHARGE SUMMARY ---
ADMISSION DATE: 01/11/2020 DISCHARGE DATE: 01/18/2020 ADMISSION DIAGNOSIS: intractable abdominal pain. DISCHARGE DIAGNOSES: 1. Intractable abdominal pain secondary to bilateral adrenalitis. 2. Colonic ileus/constipation, resolved. 3. Intractable nausea and vomiting, resolved. 4. Anticipated adrenal insufficiency. 5. Atrial fibrillation with rapid ventricular response, resolved. 6. Steroid responsive dermatitis, present on arrival. 7. Leukocytosis, resolved. CONSULTATIONS: 1. Drs. Soto/Destiny were consulted for further evaluation and management of intractable abdominal pain. 2. Dr. Topete with General Surgery was consulted for further evaluation and management of intractable abdominal pain. 3. Dr. Campbell with Cardiology was consulted for further evaluation and management of atrial fibrillation. PROCEDURES: 1. A CT scan of the abdomen and pelvis was performed on 01/10 which revealed severe constipation. Moderate acute pancreatitis. No complications. The possibility that inflammation involved the left adrenal gland rather than the pancreas was made during 2nd opinion. 2. Chest x-ray was performed on 01/11/2020 which revealed negative exam. 3. Abdominal ultrasound was performed on 01/12/2020 which revealed fatty liver. Otherwise no acute disease. 4. CT scan of the abdomen and pelvis was performed on which revealed interval significant thickening of both adrenal glands with an increase in surrounding inflammatory changes on the left and development of inflammatory changes on the right. Mild thickening of the distal sigmoid colon and rectal todd. This may be at least in part due to under distention. A component of pro mild proctitis/colitis is possible. Moderate distention of the ascending and transverse colon with air-fluid levels. Development of very small bilateral pleural effusions and basilar atelectasis. Development of mild diffuse mesenteric edema and mild body wall edema suggesting mild anasarca history. HISTORY AND PHYSICAL EXAMINATION: See admit note. PHYSICAL EXAMINATION PRIOR TO DISCHARGE: Vital signs: Temperature 99.1 degrees, heart rate 64, respirations 18. Blood pressure is 138/73. General: Well nourished, well developed, no acute distress. Cardiovascular: Regular rate and rhythm. No significant murmurs, rubs, or gallops. Pulmonary: Clear to auscultation bilaterally. Abdomen: Soft, nontender, nondistended. Positive bowel sounds. Extremities: Moves all extremities well. No significant clubbing, cyanosis, or edema. Dermatologic: Evaluation reveals no evidence of rash. LABORATORY DATA: Sodium 133, potassium 4.1, chloride 98, bicarb 23, BUN 18, creatinine 0.9, glucose 98, calcium 8.9, total bilirubin 0.44, total protein 6.7, albumin 3.2, alkaline phosphatase 95, AST 27, ALT 27. CRP 45.63, sedimentation rate 50. HOSPITAL COURSE: Patient was admitted as per history and physical examination. Hospital course per condition is as follows. 1. Intractable abdominal pain secondary to bilateral adrenalitis-upon admission, patient was noted to have intractable abdominal discomfort. Originally, CT scan was read as acute pancreatitis. Interestingly, pancreatic enzymes returned negative. Gastroenterology was consulted. Concern for a penetrating peptic ulcer was made in the setting of normal enzymes. EGD was performed which revealed only gastritis; no concerning findings were identified. A repeat read of the CT scan suggested the possibility of left adrenal inflammation rather than pancreatic inflammation. Because of his significant constipation and abdominal discomfort, a colonoscopy was scheduled. Patient was treated with GoLYTELY. Unfortunately, he did not tolerate this well. He developed intractable nausea and vomiting. An NG tube was placed. Soon thereafter, he converted into atrial fibrillation with rapid ventricular response as described below. Ultimately, he converted back to a sinus-generated rhythm. Repeat CT scan suggested bilateral adrenalitis. I discussed case with Dr. Rich in [place]. Supportive care was recommended. CMV and EBV immunoglobulins returned without acute disease. QuantiFERON gold evaluation is pending. Throughout hospitalization, patient's overall condition slowly improved. Inflammatory markers demonstrated a slow improvement as well. The patient will be discharged home with close followup. A BMP will be performed on a weekly basis to confirm sodium and potassium levels. The patient is to monitor his blood pressure twice daily for evidence of mineral corticoid deficiency. Ultimately, once able, we will plan to consult Rheumatology at [facility] for possible autoimmune etiology. 2. Constipation/colonic ileus-upon admission, patient was noted to have severe constipation. Patient was treated with multiple enemas as well as MiraLax/GoLYTELY. At this point, the question is raised whether there is a primary constipation issue or if the colonic ileus was reactive from the adrenalitis. Throughout hospitalization, bowel movements did return. The patient will be discharged with MiraLAX on a daily basis. We will follow this. His colonoscopy is up-to-date. 3. Intractable nausea and vomiting-this was diagnosed after being provided GoLYTELY. He required NG tube suction. Ultimately, with time, this resolved. At time of discharge, he was tolerating a bland GI diet. 4. Anticipated adrenal insufficiency-at this point, with bilateral adrenalitis, I anticipate the patient likely will develop adrenal insufficiency. We will continue patient on glucocorticoid replacement for his steroid responsive dermatitis. We will check a BMP on a weekly basis to confirm no electrolyte abnormalities. We will have patient check a blood pressure twice daily as well as have contact with his family on a twice daily basis. We will follow this and initiate fludrocortisone once necessary. 5. Atrial fibrillation with rapid ventricular response-this likely was reactive secondary to his abdominal symptoms. He converted back to a sinus-generated rhythm with Cardizem therapy. He required no further intervention while hospitalized. We will follow this as well. 6. Steroid responsive dermatitis-the patient was treated with Solu-Medrol while hospitalized. He was transitioned back to prednisone on the day prior to discharge. He will be discharged on 15 mg on a daily basis. The patient is to titrate up or down as necessary. 7. Leukocytosis-patient was diagnosed upon admission. He did achieve improvement while hospitalized. DISCHARGE CONDITION: Good. DISPOSITION: Discharge to home. MEDICATIONS: 1. MiraLAX 17 g in 8 ounces of juice daily. 2. Pantoprazole 40 mg daily. 3. Prednisone 15 mg daily. FOLLOWUP: The patient is to follow up with me with labs in approximately 1 week. cc: Wilver Galdamez MD
== END 2020-01-18 11:01 | disposition home or self-care (01) | DRG 644 ==
LOC: ED 08:03 → 4N 12:09 → 2N 01-13 05:16
PROVIDERS: ADMIT Internal Medicine; ATTEND Internal Medicine